=== PATIENT | female | born 1940 | race Asian ===

== ENCOUNTER 2022-04-26 21:13 | Inpatient (IN) | payer OTHER, MEDICARE, SELFPAY ==
[2022-04-26] VITALS (14 sets, daily range): BP systolic 172–204; BP diastolic 80–126; PULSE 64–84; RESP 18–20; TEMP 36.7; O2SAT 96–99; BMI 19.2
--- NOTE | 2022-04-26 21:37 | CRLHL7_ITS ---
For Patients: As a result of the Century Cures Act, medical imaging exams and procedure reports are released immediately into your electronic medical record. You may view this report before your referring provider. If you have questions, please contact your health care provider. DATE: 04/26/2022. CLINICAL HISTORY: Acute neurological deficit. TECHNIQUE: Standard helical CT image acquisition of the brain was performed. COMPARISON: None available. FINDINGS: There is no intracranial hemorrhage. No extra-axial collection, mass effect, or midline shift. There is a 9mm ovoid hypodensity within the left centrum semiovale which may reflect a lacunar infarct of indeterminate chronicity. Additional very small lacunar infarcts are seen in the bilateral basal ganglia and thalami, presumably chronic. Superimposed patchy hypoattenuation within the white matter of both hemispheres likely reflects sequela of chronic small vessel ischemia. Mild generalized parenchymal volume loss with resulting prominence of cerebral sulci and the ventricular system. The calvarium is unremarkable. Right ocular lens replacement. The paranasal sinuses are unremarkable. The mastoid air cells are unremarkable. The soft tissues are unremarkable. IMPRESSION: 1. No CT evidence of acute intracranial hemorrhage. 2. 9mm ovoid hypodensity within the left centrum semiovale. This may reflect a lacunar infarct and is of indeterminate chronicity. Further assessment with MRI of the brain is recommended if there are symptoms concerning for an acute ischemic stroke. 3. Very small lacunar infarcts in the bilateral basal ganglia and thalami, likely chronic. 4. Senescent changes including generalized parenchymal volume loss and findings likely reflecting sequela of chronic small vessel ischemia. Please note that all CT scans at this facility use dose modulation, iterative reconstruction, and/or weight-based dosing when appropriate to reduce radiation dose to as low as reasonably achievable. Dictated by Salvador Girard MD @ 04/26/2022 9:57:21 PM (Electronically Signed)
--- NOTE | 2022-04-26 22:02 | ED.NURSE ---
blood sugar 128
--- NOTE | 2022-04-26 22:18 | ED.GENADULT ---
HPI - General Adult General Chief complaint: Weakness Stated complaint: Numb in left arm, left foot Time Seen by Provider: 04/26/22 21:33 History of Present Illness HPI narrative: This 81-year-old female comes in with her son because of left-sided weakness. She is Turkmen and does not understand anguish. Her son does speak anguish but sales utility representative services were also employed. The patient fell asleep at about 8:00 p.m. yesterday and awoke at midnight, about 22 hours prior to arrival, with some left-sided weakness. These symptoms have persisted until now. She normally ambulates without assistance but was unable to do so today. Her son went to the pharmacy to get a walker but she still had difficulty with her left-sided weakness. She is not on any blood thinners. Related Data Home Medications Medication Instructions Recorded Confirmed Unobtainable 04/26/22 04/26/22 Allergies Allergy/AdvReac Type Severity Reaction Status Date / Time No Known Drug Allergies Allergy Verified 04/26/22 21:56 Review of Systems Narrative: Unable to obtain due to language barrier. [facility] Medical History (Updated 04/26/22 @ 23:52 by Conor Mercado RN) Hypertension Surgical History (Updated 04/26/22 @ 23:52 by Conor Mercado RN) No significant past surgical history Social History Smoking Status: Smoker, status unknown Do you use any of these nicotine containing products: None How often do you have a drink containing alcohol: never AUDIT-C Alcohol total score: 0 Non-prescribed substance use: denies use Exam Narrative: Exam Narrative: Constitutional: Well-developed, well-nourished, no acute distress. HEENT: Normocephalic, atraumatic. Neck: Normal range of motion. Nontender. Supple. Heart: Regular. No murmurs. Normal rate. Intact distal pulses. Lungs: Clear to auscultation. No chest discomfort. No wheezes, rhonchi, or rales. Abdomen: Normal bowel sounds. Nontender. No rebound tenderness. Genitalia: Deferred. Back: No midline tenderness. Normal range of motion. Extremities: Normal range of motion. No injury. Skin: Intact. No rash. Warm. No erythema or pallor. Neurologic: Generalized left-sided weakness. She has some left facial droop and tongue deviates to the left. 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 She has some evidence of pronator drift. [id number] is normal. She is able to raise each leg from the bed to touch my hand. Psychiatric: No suicidality. No anxiety or depression. No insomnia. Nursing notes and vitals signs are reviewed. Const: Vital Signs, click to edit/add: Vital Signs - 24 hr 04/26/22 21:52 04/26/22 21:53 04/26/22 22:02 Temperature 98.0 F Pulse Rate 66 Pulse Rate [Right Pulse Oximeter] 84 Respiratory Rate 20 Blood Pressure 201/88 H 191/83 H Blood Pressure [Le ft Upper Arm] 184/126 H Pulse Oximetry 99 96 Oxygen Delivery Me thod Room Air 04/26/22 22:03 04/26/22 22:15 04/26/22 22:17 Temperature Pulse Rate 66 64 64 Pulse Rate [Right Pulse Oximeter] Respiratory Rate Blood Pressure 182/86 H Blood Pressure [Le ft Upper Arm] Pulse Oximetry 97 98 98 Oxygen Delivery Me thod 04/26/22 22:30 04/26/22 22:32 Temperature Pulse Rate 70 71 Pulse Rate [Right Pulse Oximeter] Respiratory Rate Blood Pressure 172/91 H Blood Pressure [Le ft Upper Arm] Pulse Oximetry 97 98 Oxygen Delivery Me thod Course Vital Signs Vital signs: Initial Vital Signs Temperature 98.0 F 04/26/22 21:52 Temperature Source Temporal Artery Scan 04/26/22 21:52 Pulse Rate 84 04/26/22 21:52 Respiratory Rate 20 04/26/22 21:52 Blood Pressure 184/126 H 04/26/22 21:52 Blood Pressure Mean 145 04/26/22 21:52 Blood Pressure Position Supine 04/26/22 21:52 Pulse Oximetry 99 04/26/22 21:52 Oxygen Delivery Method 04/26/22 21:52 Vital Signs Temperature 98.0 F 04/26/22 21:52 Pulse Rate 84 04/26/22 21:52 Respiratory Rate 20 04/26/22 21:52 Blood Pressure 184/126 H 04/26/22 21:52 Pulse Oximetry 99 04/26/22 21:52 Oxygen Delivery Method 04/26/22 21:52 Temperature 98.0 F 04/26/22 21:52 Pulse Rate 71 04/26/22 22:32 Respiratory Rate 20 04/26/22 21:52 Blood Pressure 172/91 H 04/26/22 22:32 Pulse Oximetry 98 04/26/22 22:32 Oxygen Delivery Method 04/26/22 21:52 Medical Decision Making MDM Narrative Medical decision making narrative: This patient comes in with mild but certainly notable left-sided weakness that began about 22 hours prior to arrival here. She is obviously outside of the window where thrombolytics can be considered. She does have some findings on CT scan that are suspicious for an embolic stroke. An MRI is recommended which can not be completed at this time. The patient is maintaining normal vital signs and has rather good function. She has difficulty with ambulating but was able to get up and ambulate to the bathroom with assistance of a walker and a person holding onto her. This is a distinct change from her previous function where she was ambulating without any assistance. Attempts were made to transfer this patient to a facility that has more resources for stroke evaluation treatment but there were no such beds available. There is a bed available here. I spoke with the hospitalist correctional therapy director for [facility] who will arrange for her admission into the hospital here for further evaluation and treatment. Lab Data Labs: Lab Results 04/26/22 04/26/22 04/26/22 Range/Units 22:10 22:10 22:10 WBC 6.12 (4.50-11.00) K/uL RBC 4.39 (4.00-5.20) m/uL Hgb 12.2 (12.0-16.0) gm/dL Hct 38.2 (33.0-51.0) % MCV 87 (80-100) fL MCH 28 (26-34) pg MCHC 32 (32-36) gm/dL RDW Coeff of Cristofer 12.5 (11.5-15.5) % Plt Count 325 (140-440) K/uL Neut % (Auto) 57.1 (42.0-72.0) % Lymph % (Auto) 27.0 (20-44) % [place] % (Auto) 11.3 H (0.0-11.0) % Eos % (Auto) 3.1 (0.0-7.0) % Baso % (Auto) 0.8 (0.0-3.0) % Neut # (Auto) 3.50 (1.7-7.0) K/uL Lymph # (Auto) 1.65 (0.90-2.90) K/uL [place] # (Auto) 0.70 (0.00-0.90) K/UL Eos # (Auto) 0.19 (0.00-0.50) K/uL Baso # (Auto) 0.05 (0.00-0.30) K/uL Abs Immat Gran (auto) 0.04 (0.00-0.30) K/uL Imm/Tot Granulo (auto) 0.7 % Sodium 140 (135-149) mmol/L Potassium 4.4 (3.6-5.1) mmol/L Chloride 105 (96-114) mmol/L Carbon Dioxide 27 (20-32) mmol/L BUN 21 (7-30) mg/dL Creatinine 0.8 (0.5-1.5) mg/dL Estimated Creat Clear 29.51 Estimated GFR 74 ml/min Glucose 123 H (60-115) mg/dL Calcium 9.8 (8.4-10.6) mg/dL SARS-CoV-2 (PCR) Negative SARS-CoV-2 (Negative) Influenza Type A (PCR) Negative PCR FLU A (Negative) Influenza Type B (PCR) Negative PCR FLU B (Negative) Imaging Data CT scan - head: Radiologist's impression: 1. No CT evidence of acute intracranial hemorrhage. 2. 9mm ovoid hypodensity within the left centrum semiovale. This may reflect a lacunar infarct and is of indeterminate chronicity. Further assessment with MRI of the brain is recommended if there are symptoms concerning for an acute ischemic stroke. 3. Very small lacunar infarcts in the bilateral basal ganglia and thalami, likely chronic. 4. Senescent changes including generalized parenchymal volume loss and findings likely reflecting sequela of chronic small vessel ischemia. ECG Data Attestation: I personally reviewed and interpreted this ECG as follows: Interpretation: Normal sinus rhythm. Rate is 68 beats per minute. There are no ST or T-wave abnormalities. Discharge Plan Discharge Clinical Impression: Cerebrovascular accident (CVA) Patient Disposition: Admitted As Inpatient Condition: Unchanged
[2022-04-26 22:31] LABS: Chloride* 105 mmol/L (96-114); Potassium* 4.4 mmol/L (3.6-5.1); Sodium* 140 mmol/L (135-149)
[2022-04-26 22:34] LABS: Blood Urea Nitrogen* 21 mg/dL (7-30); Calcium* 9.8 mg/dL (8.4-10.6); Carbon Dioxide* 27 mmol/L (20-32); Creatinine* 0.8 mg/dL (0.5-1.5); Est. Creatinine Clearance* 29.51; Estimated Glomerular Filt Rate 74 ml/min; Glucose* 123 mg/dL (60-115)
[2022-04-26 22:42] LABS: Basophils Absolute Auto 0.05 K/uL (0.00-0.30); Basophils Percent Auto 0.8 % (0.0-3.0); Eosinophils Absolute Auto 0.19 K/uL (0.00-0.50); Eosinophils Percent Auto 3.1 % (0.0-7.0); Hematocrit 38.2 % (33.0-51.0); Hemoglobin* 12.2 gm/dL (12.0-16.0); Immature Granulocytes Abs Auto 0.04 K/uL (0.00-0.30); Immature Granulocytes Pct Auto 0.7 %; Lymphocytes Absolute Auto 1.65 K/uL (0.90-2.90); Mean Corpuscular HGB Conc 32 gm/dL (32-36); Mean Corpuscular Hemoglobin 28 pg (26-34); Mean Corpuscular Volume 87 fL (80-100); Monocytes Percent Auto 11.3 % (0.0-11.0); Neutrophils Percent Auto 57.1 % (42.0-72.0); Platelet Count* 325 K/uL (140-440); RDW Coefficient of Variation % 12.5 % (11.5-15.5); Red Blood Count 4.39 m/uL (4.00-5.20); White Blood Count* 6.12 K/uL (4.50-11.00)
[2022-04-26 22:45] LABS: Slide Review Reflex No
[2022-04-26 22:56] LABS: PCR FLU A Negative PCR FLU A (Negative); PCR FLU B Negative PCR FLU B (Negative)
[2022-04-26 23:00] LABS: SARS PCR* Negative SARS-CoV-2 (Negative)
[2022-04-27] VITALS (8 sets, daily range): BP systolic 155–206; BP diastolic 75–93; PULSE 66–89; RESP 16–18; TEMP 36.4–36.9; O2SAT 96–100; BMI 25.2
[2022-04-27] MEDS: ASPIRIN 81 MG TAB.CHEW 324 MG PO (00:40)
--- NOTE | 2022-04-27 00:54 | P.IMCN_ITS ---
Date of Consult Consult date: 04/27/22 Primary Care Provider: Not a Local Provider Consult Narrative Narrative: [facility] Hospitalist ADMISSION SUPPORT NOTE eHospitalist was contacted by with request of admission support. Chief complaint: Left sided weakness HPI: The history was obtained from the patient's son Houston who was present at bedside and acted as automotive parts interpreter given the fact that the patient speaks Maldivian only. Apparently at midnight 04/26 the patient got up to go to the restroom and had weakness on her left side making it difficult for her to walk. She therefore crawled to the restroom. She called her son Houston who does not live with her however in speaking with him she thought her symptoms were related to her legs falling asleep. She decided to go back to sleep and in the morning her weakness continued. She attempted to ambulate with the use of a walker but this was unsuccessful and she eventually came in for evaluation. She has history of elevated blood pressure although not on any medications. She is visiting her son who reports that since she came to [facility] in January she has not been seen by a physician. CT scan imaging revealed lacunar infarcts. Review of systems other than mentioned above is negative Home Medications/Pertinent Medical History/Pertinent Social History: Reviewed see EMR for details [facility] Medical History (Updated 04/26/22 @ 23:52 by Conor Mercado RN) Hypertension Surgical History (Updated 04/26/22 @ 23:52 by Conor Mercado RN) No significant past surgical history Social History Smoking Status: Smoker, status unknown Do you use any of these nicotine containing products: None How often do you have a drink containing alcohol: never AUDIT-C Alcohol total score: 0 Non-prescribed substance use: denies use Caffeine: No (coffee rarely) service: No Meds Home Medications and Allergies Home Medications Medication Instructions Recorded Confirmed Type Unobtainable 04/26/22 04/26/22 History Allergies Allergy/AdvReac Type Severity Reaction Status Date / Time No Known Drug Allergies Allergy Verified 04/26/22 21:56 Exam Narrative: Exam Narrative: Exam (performed via interactive video with assistance of bedside nurse): General: Alert, cooperative, no acute distress HEENT: Oral mucosa pink and moist without erythema Lungs: Clear to auscultation bilaterally without crackle or wheeze CV: Regular rate and rhythm without loud murmur rub or gallop Ext: No pitting edema noted Skin: No rashes, bruises or lesions appreciated on gross visualization of exposed skin Neuro: Alert, oriented x 3. CN III -VII, XI, XII grossly intact except left facial troop, left sided weakness appreciated by nurse Const: Vital Signs, click to edit/add: Vital Signs - 24 hr 04/26/22 21:52 04/26/22 21:53 04/26/22 22:02 Temperature 98.0 F Pulse Rate 66 Pulse Rate [Right Pulse Oximeter] 84 Respiratory Rate 20 Blood Pressure 201/88 H 191/83 H Blood Pressure [Le ft Upper Arm] 184/126 H Pulse Oximetry 99 96 Oxygen Delivery Me thod Room Air 04/26/22 22:03 04/26/22 22:15 04/26/22 22:17 Temperature Pulse Rate 66 64 64 Pulse Rate [Right Pulse Oximeter] Respiratory Rate Blood Pressure 182/86 H Blood Pressure [Le ft Upper Arm] Pulse Oximetry 97 98 98 Oxygen Delivery Me thod 04/26/22 22:30 04/26/22 22:32 04/26/22 22:47 Temperature Pulse Rate 70 71 64 Pulse Rate [Right Pulse Oximeter] Respiratory Rate 18 Blood Pressure 172/91 H 199/109 H Blood Pressure [Le ft Upper Arm] Pulse Oximetry 97 98 99 Oxygen Delivery Me thod 04/26/22 23:05 04/26/22 23:17 04/26/22 23:32 Temperature Pulse Rate 73 67 70 Pulse Rate [Right Pulse Oximeter] Respiratory Rate 18 18 18 Blood Pressure 199/80 H 204/94 H 199/95 H Blood Pressure [Le ft Upper Arm] Pulse Oximetry 97 97 98 Oxygen Delivery Me thod 04/26/22 23:47 04/27/22 00:02 04/27/22 00:17 Temperature Pulse Rate 67 69 68 Pulse Rate [Right Pulse Oximeter] Respiratory Rate 18 18 18 Blood Pressure 197/89 H 206/89 H 186/93 H Blood Pressure [Le ft Upper Arm] Pulse Oximetry 98 100 100 Oxygen Delivery Me thod 04/26/22 22:00 Temperature Pulse Rate Pulse Rate [Right Pulse Oximeter] Respiratory Rate Blood Pressure Blood Pressure [Le ft Upper Arm] Pulse Oximetry 98 Oxygen Delivery Me thod Labs Labs: Short CBC 04/26/22 Range/Units 22:10 WBC 6.12 (4.50-11.00) K/uL Hgb 12.2 (12.0-16.0) gm/dL Hct 38.2 (33.0-51.0) % Plt Count 325 (140-440) K/uL [facility] 04/26/22 22:10 Sodium 140 Potassium 4.4 Chloride 105 Carbon Dioxide 27 BUN 21 Creatinine 0.8 Glucose 123 H Calcium 9.8 Assessment and Plan Assessment and plan (1) Cerebrovascular accident (CVA): Status: Acute Plan Recent lab: Reviewed see EMR for details EKG: Per my interpretation showed NSR Assessment and Plan: 1. Stroke-MRI and MRA of brain and neck ordered, patient needs 2D echo with bubble. Continue telemetry. Continue aspirin. Check hemoglobin A1c, TSH, lipid panel 2. Hypertension-begin low-dose amlodipine in the morning. 3. DVT prophylaxis-SCDs 4. CODE STATUS okay for cardiac resuscitation DO NOT INTUBATE discussed with patient Chart review was performed as well as evaluation of the patient via video. Thank you for involving ehospitalist. Please contact [phone] if further assistance is needed.
--- NOTE | 2022-04-27 06:00 | CRLHL7_ITS ---
For Patients: As a result of the Century Cures Act, medical imaging exams and procedure reports are released immediately into your electronic medical record. You may view this report before your referring provider. If you have questions, please contact your health care provider. Indication: Neuro deficit. Stroke Technique: MRI Head: Performed without IV contrast. MRA Head: Performed without IV contrast. Comparison: None relevant available at the time of interpretation. Findings: MRI Head: Mild thinning of the corpus callosum. Partially empty sella turcica. The clivus is intact. Mild degenerative change visualized upper cervical spine. There is a moderate-sized zone of restricted diffusion measuring up to 1.8 cm in AP diameter located within the right sammy sonali. There is associated T2 FLAIR hyperintensity. The ventricles are proportionate to the cerebral sulci. The 4th ventricle appears midline. The basal cisterns appear patent. No abnormal extra-axial fluid collection identified. Mild parenchymal volume loss. Moderate T2 FLAIR hyperintense foci within the subcortical and periventricular white matter, favored to represent chronic ischemic microvascular disease. Small chronic cerebellar lacunar infarcts. Left greater than right thalamic chronic lacunar infarcts. Small foci of chronic hemosiderin along the right cerebellar hemisphere and sonali. There is no intracranial mass, abnormal mass-effect or midline shift identified. Bilateral pseudophakia. Mild paranasal sinus mucosal disease. MRA Head: [id number] scattered intracranial atherosclerotic disease. There is no proximal arterial occlusion. No aneurysm identified. Impression: MRI Head: 1. Moderate-sized acute/subacute right pontine infarct 2. Moderate chronic ischemic microvascular disease. Scattered chronic lacunar infarcts of the thalami and cerebellum. MRA Head: 1. Mild to moderate scattered intracranial atherosclerotic disease. No proximal anterior occlusion. 2. No aneurysm. Dictated by William De Jesus MD @ 04/27/2022 1:08:34 PM (Electronically Signed)
[2022-04-27 07:20] LABS: Hemoglobin A1C* 6.63 % (0-5.6)
[2022-04-27 07:37] LABS: Cholesterol* 334 mg/dL (90-199)
[2022-04-27 07:38] LABS: HDL Cholesterol* 51 mg/dL (>=50); LDL Cholesterol Calculated 225 mg/dL (<100); Triglycerides* 288 mg/dL (40-149)
[2022-04-27] MEDS: CLOPIDOGREL 75 MG TABLET PO (09:43)
[2022-04-27] MEDS: ROSUVASTATIN CALCIUM 10 MG TABLET PO (09:44)
[2022-04-27] MEDS: ACETAMINOPHEN 325 MG TABLET 650 MG PO (14:27)
--- NOTE | 2022-04-27 15:17 | PC.SOCIAL ---
Per therapies pt. may benefit from an acute rehab stay. Updated pt.'s son and he was in agreement to try an acute rehab stay otherwise he wants to take pt. home. A referral was sent to [facility]. Spoke with Gardenia at [facility] at [phone]. They are not sure if they will have and opening and if they do it will not be until Monday. Also pt. has [employer] which is a [facility] plan. Typically they do not cover out of state rehab unless they make an out of network exception and it is a process. 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 [facility] will give an update tomorrow.
--- NOTE | 2022-04-27 15:29 | P.IMHP_ITS ---
Hospitalist- H&P: HPI History of Present Illness Date Seen: 04/28/22 Chief complaint: Numb in left arm, left foot Narrative: Jw Gama is a 81 year old female admitted to the hospital with a 1 day history of left arm and leg weakness, difficulty speaking, left-sided numbness and some right-sided pain. 04/25/2022 late in the evening near midnight the patient had left-sided weakness. This was of new onset. She was unable to walk because her left leg was not working properly. She apparently had to crawl to the bathroom. Symptoms persisted the next day so she came to the emergency room. She arrived in the emergency room almost 22 hours after the onset of symptoms. That time she was clinically diagnosed with a stroke causing her left-sided symptoms. She was felt to not be a candidate for thrombolysis or catheter directed therapies. This morning she was admitted for management of stroke and rehabilitation. She had an MRI this morning that showed moderate sized acute to subacute right pontine infarct. Also noted were moderate chronic ischemic microvascular disease with scattered chronic lacunar infarcts in the thalami and cerebellum. The MRA showed [id number] scattered intracranial atherosclerotic disease. Overnight she notes no marked change in her symptoms. She is most bothered by her leg weakness with which she can not walk and her left arm which she feels is currently useless to her. She also is telling me that her tongue does not work well when she tries to speak. She sounds fairly fluent however when she speaks to the Frisian window glass installer. She is also saying that she is having pain involving the right side of her body and numbness involving the left side of her body. She reports that she is entirely healthy in the past but when pressed she indicates in the past he has been diagnosed with high cholesterol and high blood pressure. She has apparently been prescribed medicine for this which she is not taking. She takes no regular medicines except for an occasional Advil which she did have recently. Review of Systems Narrative: Prior to the last 2 days she reports she has been generally well except for mild cold symptoms recently. Some congestion and sore throat. Some cough. No shortness of breath or fever. She denies headache. She reports no visual disturbance. No previous neurologic symptoms or previous stroke. No chest pain or abdominal pain. She has been eating normally. No bowel or bladder problems. She has no previous surgery. No apparent previous hospitalization. [facility] Medical History (Updated 04/27/22 @ 15:43 by Narciso Pabon MD) Hyperlipidemia Hypertension Surgical History No significant past surgical history Social History (Updated 04/27/22 @ 15:36 by Narciso Pabon MD) Narrative: She lives with her son in [place] most the time but is here visiting her son in [place]. Code status is DNI. She does not smoke. She does not drink alcohol. Smoking Status: Smoker, status unknown Do you use any of these nicotine containing products: None How often do you have a drink containing alcohol: never AUDIT-C Alcohol total score: 0 Non-prescribed substance use: denies use Caffeine: No (coffee rarely) service: No Meds Home Medications and Allergies Home Medications Medication Instructions Recorded Confirmed Type Unobtainable 04/26/22 04/26/22 History Allergies Allergy/AdvReac Type Severity Reaction Status Date / Time No Known Drug Allergies Allergy Verified 04/26/22 21:56 Exam Narrative: Exam Narrative: She is alert and appears in no distress. Head is without trauma. There is no obvious facial asymmetry. Eyes are normal. Pupils are equal round reactive light. Extraocular movements are full. Visual rajan appear intact. She does not appear to have a sensory neglect in her face. Oropharynx is normal. Neck is supple without mass or adenopathy. Respirations are clear to auscultation. Cardiovascular: S1, S2, regular rate and rhythm. No murmur gallop or rub. Abdomen: Bowel sounds active. Abdomen is soft without tenderness or mass. Right upper extremity has normal motion and strength. Hjwofe-sihy-zgrnrp is accurate and efficient. Left upper extremity. When I ask her to move voluntarily she initially cannot lift it off the bed but then when instructed again she has 4- over 4 strength in shoulder flexion extension, elbow flexion extension, wrist flexion extension, fire prevention chief strength and finger extension. F sdfne-aiki-jmopua is slow and inaccurate on the left. She appears to have some apraxia with her left as well. She tells me that her arm is numb but does feel the skin when I pinch it but says it does not feel normal Right lower extremity has normal strength, tone, sensation, pulses. She reports intact sensation to soft touch. She does tell me that there is a discomfort in that leg but no obvious signs of trauma or previous injury or inflammation. When examining her left lower extremity in asking her to lift it off the bed she initially indicates that she can not and uses her hands to lift it up. After further instruction however she is able to lift it and move it with fair strength. She does not cooperate well with strength testing but it appears again to be 4- over 5 strength in her left lower extremity. Is intact pulses. She tells me it is numb but then when I pinch her skin she tells me she can feel it but it does not feel normal. Const: Vital Signs, click to edit/add: Vital Signs - 24 hr 04/26/22 21:52 04/26/22 21:53 04/26/22 22:02 Temperature 98.0 F Pulse Rate 66 Pulse Rate [Pulse Oximeter] Pulse Rate [Right Pulse Oximeter] 84 Respiratory Rate 20 Blood Pressure 201/88 H 191/83 H Blood Pressure [Le ft Upper Arm] 184/126 H Blood Pressure [Ri ght Arm] Pulse Oximetry 99 96 Oxygen Delivery Me thod Room Air 04/26/22 22:03 04/26/22 22:15 04/26/22 22:17 Temperature Pulse Rate 66 64 64 Pulse Rate [Pulse Oximeter] Pulse Rate [Right Pulse Oximeter] Respiratory Rate Blood Pressure 182/86 H Blood Pressure [Le ft Upper Arm] Blood Pressure [Ri ght Arm] Pulse Oximetry 97 98 98 Oxygen Delivery Me thod 04/26/22 22:30 04/26/22 22:32 04/26/22 22:47 Temperature Pulse Rate 70 71 64 Pulse Rate [Pulse Oximeter] Pulse Rate [Right Pulse Oximeter] Respiratory Rate 18 Blood Pressure 172/91 H 199/109 H Blood Pressure [Le ft Upper Arm] Blood Pressure [Ri ght Arm] Pulse Oximetry 97 98 99 Oxygen Delivery Me thod 04/26/22 23:05 04/26/22 23:17 04/26/22 23:32 Temperature Pulse Rate 73 67 70 Pulse Rate [Pulse Oximeter] Pulse Rate [Right Pulse Oximeter] Respiratory Rate 18 18 18 Blood Pressure 199/80 H 204/94 H 199/95 H Blood Pressure [Le ft Upper Arm] Blood Pressure [Ri ght Arm] Pulse Oximetry 97 97 98 Oxygen Delivery Me thod 04/26/22 23:47 04/27/22 00:02 04/27/22 00:17 Temperature Pulse Rate 67 69 68 Pulse Rate [Pulse Oximeter] Pulse Rate [Right Pulse Oximeter] Respiratory Rate 18 18 18 Blood Pressure 197/89 H 206/89 H 186/93 H Blood Pressure [Le ft Upper Arm] Blood Pressure [Ri ght Arm] Pulse Oximetry 98 100 100 Oxygen Delivery Me thod 04/26/22 22:00 04/27/22 00:43 04/27/22 00:43 Temperature 98.4 F Pulse Rate Pulse Rate [Pulse Oximeter] 70 Pulse Rate [Right Pulse Oximeter] Respiratory Rate 16 Blood Pressure Blood Pressure [Le ft Upper Arm] Blood Pressure [Ri ght Arm] 194/80 H Pulse Oximetry 98 98 98 [facility] Room Air 04/27/22 03:00 04/27/22 07:00 04/27/22 07:00 Temperature 98.3 F 98.2 F Pulse Rate Pulse Rate [Pulse Oximeter] 66 68 68 Pulse Rate [Right Pulse Oximeter] Respiratory Rate 16 16 16 Blood Pressure Blood Pressure [Le ft Upper Arm] Blood Pressure [Ri ght Arm] 186/82 H 181/85 H Pulse Oximetry 98 98 [facility] Room Air 04/27/22 11:25 Temperature 97.6 F Pulse Rate Pulse Rate [Pulse Oximeter] 73 Pulse Rate [Right Pulse Oximeter] Respiratory Rate 16 Blood Pressure Blood Pressure [Le ft Upper Arm] Blood Pressure [Ri ght Arm] 165/90 H Pulse Oximetry 96 [facility]xygen [facility] Hospitalist - H&P: Result Labs Labs: Short CBC 04/26/22 Range/Units 22:10 WBC 6.12 (4.50-11.00) K/uL Hgb 12.2 (12.0-16.0) gm/dL Hct 38.2 (33.0-51.0) % Plt Count 325 (140-440) K/uL BMP 04/26/22 22:10 Sodium 140 Potassium 4.4 Chloride 105 Carbon Dioxide 27 BUN 21 Creatinine 0.8 Glucose 123 H Calcium 9.8 Assessment and Plan Assessment and plan (1) Cerebrovascular accident (CVA): Problem comment: Acute right pontine infarct causing left-sided weakness, apraxia, subjective dysarthria and diminished sensation Status: Acute (2) Hypertension: Problem comment: Permissive hypertension for now Status: Acute (3) Hyperlipidemia: Problem comment: Initiate statin Status: Acute Plan Hospitalized for management of acute stroke. Dual antiplatelet therapy for 21 days followed by aspirin alone. Statin. Gradual introduction of blood pressure management. Acute rehab. Total time spent today is 80 minutes, 50 minutes in coordination of care and discussing with patient and other providers ongoing evaluation management of stroke
[2022-04-27] MEDS: ASPIRIN 81 MG TAB.CHEW PO (15:37)
--- NOTE | 2022-04-27 19:37 | PC.NURSE ---
Pt. alert and oriented, pleasant and cooperative using Ipad plant health care technician. Pt. uses call light appropriately, up Assist of 1 w/walker and GB. Cont. of bowels. Pt. is vegetarian and eats eggs but no other meat. Pt. is Reg diet. Pt. has significant left side weakness and facial drooping. IV in right arm SL. Plan for patient is to go to possible rehab facility. Dhiraj Houston visits before work in mornings and after work in evenings and will translate for pt.
[2022-04-27] MEDS: ENOXAPARIN 30 MG/0.3ML INJ SUBCUT (20:33)
[2022-04-28] VITALS (7 sets, daily range): BP systolic 157–184; BP diastolic 76–84; PULSE 66–82; RESP 16–20; TEMP 36.4–36.8; O2SAT 96–98
--- NOTE | 2022-04-28 07:29 | PC.NURSE ---
End of shift status [id number] Pt alert and oriented. South African speaking. Son present in room until around 2300. Denies pain. BP elevated, remains on room air. Telemetry monitoring, normal sinus rhythm. Up with assist of 1 and walker, needs reminders to use walker properly. Voiding without difficulty. Intermittent resting.
[2022-04-28] MEDS: ASPIRIN 81 MG TAB.CHEW PO (08:55)
[2022-04-28] MEDS: CLOPIDOGREL 75 MG TABLET PO (08:55)
[2022-04-28] MEDS: ROSUVASTATIN CALCIUM 10 MG TABLET 20 MG PO (08:56)
--- NOTE | 2022-04-28 11:19 | PC.SOCIAL ---
Met with pt. and son to discuss discharge plans and go over insurance and what Kim Glass said about coverage. Pt. wants to go home and son Houston is in support of this. Pt. lives in [place] and [place] said one family member will be with pt. at all times. They would like to pursue home care for PT and OT. [facility] does not accept medical assistance and [facility] is full. [facility] @ [phone], has an opening is assessing and checking staffing schedules.
--- NOTE | 2022-04-28 13:07 | PM.DS1 ---
DS: Providers Provider Date Seen: 04/28/22 Date of admission: 04/27/22 14:21 Primary care physician: Bernard Ramirez MD Admitting Clinician: Brendan Iverson MD Attending Physician on discharge: Brendan Iverson MD Date of Discharge: 04/28/22 DS: Diagnosis Discharge Diagnosis (1) Cerebrovascular accident (CVA): Status: Acute Problem details: Acute right pontine infarct causing left-sided weakness, apraxia, subjective dysarthria and diminished sensation. Aspirin 81 mg daily and definitely. Clopidogrel 75 mg daily for 21 days. Outpatient PT and OT. (2) Hyperlipidemia: Status: Acute Problem details: Initiate high-dose statin. (3) Hypertension: Status: Acute Problem details: Gradually bring blood pressures under control over the next month. DS: Summary Hospital Course Hospital Course: 81-year-old female presents to the hospital approximately 1 day after onset of left sided weakness. Evaluation showed that she had left upper and lower extremity weakness with some apraxia. MRI MRA was obtained and showed an acute pontine stroke. She was beyond the time of thrombolytics or other intravascular intervention. She was treated with aspirin and clopidogrel, statin and permissive hypertension. Patient also reported some difficulties with speaking. Speech therapy evaluation showed no difficulties with swallowing thin liquids and solid foods. Occupational therapy and physical therapy felt she would benefit from inpatient rehab but there were no available options for this. Patient was very anxious to go home in any case so arrangements were made for her to go home with her son who can provide 24 hour a day 7 day a week care and supervision with his siblings. Will make arrangements for outpatient PT and OT. Status at Discharge Cognitive/behavioral status at discharge: Left sided weakness and apraxia involving left arm and leg. Clumsy with [id number] on the left. Speech seems relatively fluent. Functional status at discharge: uses cane/walker Overall status at discharge: patient is progressing back to baseline Time Spent with Patient Time attestation: Total time spent providing and/or coordinating discharge services: Time spent: Greater than 30 minutes Exam Narrative: Exam Narrative: She is alert and appears in no distress. Speech seems relatively fluent without obvious dysarthria. No facial asymmetry. Extraocular movements are full. She has 4/5 strength in her left upper extremity compared to 5/5 in the right. Similarly 4/5 strength in the left lower extremity compared to the right lower extremity. She is clumsy and somewhat apraxic with the left upper extremity compared to the right. Const: Vital Signs, click to edit/add: Vital Signs - 24 hr 04/27/22 15:00 04/27/22 15:00 04/27/22 20:32 Temperature 98.0 F 97.9 F Pulse Rate Pulse Rate [Pulse Oximeter] 73 89 71 Respiratory Rate 16 16 16 Blood Pressure [Le ft Arm] Blood Pressure [Ri ght Arm] 162/79 H 155/75 H Pulse Oximetry 98 98 Oxygen Delivery Me thod Room Air Room Air 04/28/22 00:19 04/28/22 01:26 04/28/22 04:35 Temperature 97.6 F 98.1 F Pulse Rate Pulse Rate [Pulse Oximeter] 71 78 73 Respiratory Rate 16 20 20 Blood Pressure [Le ft Arm] Blood Pressure [Ri ght Arm] 157/80 H 184/84 H Pulse Oximetry 98 96 Oxygen Delivery Me thod Room Air Room Air 04/28/22 05:52 04/28/22 07:00 04/28/22 11:00 Temperature 98.2 F 97.9 F Pulse Rate 82 Pulse Rate [Pulse Oximeter] 70 77 Respiratory Rate 18 18 Blood Pressure [Le ft Arm] 178/79 H 165/76 H Blood Pressure [Ri ght Arm] Pulse Oximetry 96 97 Oxygen Delivery Me thod Room Air Room Air Documenting provider has reviewed patient's vital signs: yes Discharge Plan Discharge Disposition: Home, Self-Care Date of Admission: 04/27/22 14:21 Attending Provider on Discharge: Narciso Pabon Primary Care Provider: Bernard Ramirez Condition: Unchanged Anticipated Discharge Date/Time: 04/28/22 11:22 Discharge Medications: New acetaminophen 325 mg Tablet 650 mg PO Q6H PRNQty: 100 0RF aspirin [Children's Aspirin] 81 mg Tablet,Chewable 81 mg PO DAILY Qty: 100 0RF clopidogrel 75 mg tablet 75 mg PO DAILY Qty: 21 0RF amlodipine 5 mg tablet 5 mg PO DAILY Qty: 30 3RF rosuvastatin 20 mg tablet 20 mg PO DAILY Qty: 30 3RF Discharge Orders: Discharge Order (Routine); Ordered 04/28/22 Ordered By: Narciso Pabon Patient Education: Acetaminophen (By mouth), Aspirin (By mouth), Amlodipine (By mouth), Clopidogrel (By mouth), Rosuvastatin (By mouth), Stroke (DC) Additional Instructions: Physical therapy and occupational therapy to evaluate and treat for stroke. Activity Level: Up with assist and Use Walker Discharge Diet: Regular Follow Up Appointments: Bernard Ramirez MD [Primary Care Provider] - 05/05/22 1:30 pm Forms: [employer] Info Instructions
--- NOTE | 2022-04-28 13:55 | PC.SOCIAL ---
[facility] has availability but cannot accept pt.'s [place] assistance, no home care agencies can accept an out of state [place]. Updated pt.'s son Houston who switched over pt.'s medical assistance today and said it should go through by next week. Pt. still really wants to go home. Houston will take pt. home to her house in [place] and a family member will be with pt. 12/12. Pt. has outpatient PT and OT in [place] set up but it is 3 weeks out. Emailed Houston a list of area home health agencies that Houston can call once pt. has [place] medical assistance. Pt. will need to get new home care orders through her primary and Houston is aware of this. Pt. will also discharge home with home exercises from OT and PT.
--- NOTE | 2022-04-28 15:42 | PC.NURSE ---
Discharge-- Very pleasant and cooperative, alert and oriented patient discharged to home via wheelchair with son and daughter in law. Pt speaks primarily Indonesian but declined to use ipad tow truck dispatcher and instead asked for her son to interpret. VSS, though hypertensive as per MD recommendation at this time, and pt is afebrile. SPO2 maintained >90% on RA. She denied any pain. Pt continues to have residual weakness on left side and slight left sided facial droop. Telemetry showed NSR. LS CTA. BS+ x4, pt denied nausea and tolerated a regular diet without difficulty. She ambulated in hallway and in room with SBA and walker and tolerated it very well. Discharge education was provided including diagnosis info, symptoms to report, medications and follow up plan. All questions answered. SL was removed with tip intact.
== END 2022-04-28 15:30 | disposition home or self-care (01) | DRG 65 ==
LOC: ED 23:48 → MEDSURG 04-27 00:20
PROVIDERS: Internal Medicine; Admitting Provider Internal Medicine; Emergency Provider Emergency Medicine Emergency Medical Services; PCP Family Medicine; Visit Provider Internal Medicine
DX: I63.9 Cerebral infarction, unspecified (principal); G81.94 Hemiplegia, unspecified affecting left nondominant side; R48.2 Apraxia; R47.1 Dysarthria and anarthria; R20.0 Anesthesia of skin; R29.810 Facial weakness; I67.2 Cerebral atherosclerosis; I10 Essential (primary) hypertension; E78.5 Hyperlipidemia, unspecified
CPT/HCPCS: 36415; 70450; 70544; 70551; 80048; 80061; 83036; 84443; 85025; 87631; 92610; 93005; 93306; 94761; 97110; 97116; 97161; 97165; 97535; 99285; A9270; G0378; J1650

== ENCOUNTER 2022-09-05 08:43 | Outpatient (CLI) | payer MEDICARE, SELFPAY | END 2022-09-05 08:44 | disposition home or self-care (01) | PROVIDERS: PCP Family Medicine; Referring Provider Family Medicine; Visit Provider Family Medicine | DX: Z00.00 Encounter for general adult medical examination without abnormal findings (principal); E11.9 Type 2 diabetes mellitus without complications; Z13.6 Encounter for screening for cardiovascular disorders | CPT/HCPCS: 80048; 80061; 82043; 82570 ==

== ENCOUNTER 2022-09-30 11:11 | Outpatient (CLI) | payer MEDICARE, SELFPAY | END 2022-09-30 11:12 | disposition home or self-care (01) | PROVIDERS: PCP Family Medicine; Visit Provider Family Medicine | DX: Z01.419 Encounter for gynecological examination (general) (routine) without abnormal findings (principal); E11.9 Type 2 diabetes mellitus without complications; E78.5 Hyperlipidemia, unspecified; D64.9 Anemia, unspecified | CPT/HCPCS: 82607; 82728; 83540 ==

== ENCOUNTER 2022-11-08 09:15 | Outpatient (RCR) | payer MEDICARE, OTHER, SELFPAY ==
--- NOTE | 2022-05-18 17:12 | OT.OPODN ---
OT Outpatient Ortho Daily Note OT Outpatient Ortho Daily Note Start: 05/18/22 15:05 Freq: Status: Active Protocol: Document 05/18/22 15:33 LCN (Rec: 05/18/22 15:35 LCN Desktop) E-signed By Shanon Stein, OTR/L, CLT Type of Note Type of Note Type of Note Daily Note Visit Number 1 Insurance Information Insurance Information Medicare B Outpatient History/Precautions Current Condition/Medical Diagnosis Referring Provider Dr. 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 on 81 mg aspirin indefinitely. 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 Found to have suffered an acute right pontine infarct causing left-sided weakness, apraxia, subjective dysarthria and diminished sensation. Was stabilized in hospital setting and had OT/PT prior to discharge. Since then, she has progressed to being able to dress and toilet herself from walker level with close 24 hour supervision of her family at home. She is stronger proximally at L shoulder, triceps; weaker at biceps wrist, domain architect. Pain Assessment Pain Present Pain Present No Pain Reported OT OP Daily Ortho Note/Assessment Self-Care/Home Management Self-Care/Home Management Minutes ( 5 minutes) Self-Care/Home Management Comments Discussed need for adding satefy grab bars in /outside of tub shower and how to access at Home [employer], [employer], Headroom. Son already installed ones by toilet, has space for a vertical outside of tub/shower . Advised not to rely on towel bars or shower glass frame. Therapeutic Exercise Therapeutic Exercise Minutes (minutes) 20 Therapeutic Exercise Comments OTR devises HEP for building shoulder strength using B dowel exercises in supine for chest press, SH FL short arc 90-160 degrees and H ABD to H Add. Added enlarged domain architect with therapy band. Has to regrip hand, take a break at 4-6 reps for exercise but larger domain architect is helpful. In sitting at door, doing scap row pull backs with foam handle on orange therapy band loop/door knob. Issued visual aide with long and short format, with verbal review of each exercise . Encouraged to build slowly by 5-10 reps each week and to avoid any exercises that create pain. Aching from effort is okay. Also to use L hand functionally for washing face with wash cloth and wiping table off every meal. Edema Assessment Additional Information Comments Dresses self with set up. Bathes with min A during transfer, from shower chair in tub shower with glass door, hand held shower. no grab bars outside or inside tub, by stabilizes on door frame and with hand held/family assist. Toilets-- self walking between rooms and now anticipating bowel/bladder in time ( that was hard just after d/c had been using briefs until a week ago) onto raised toilet seat with grab bars B, has bidet for leroy care/hygiene. Eats with set up of meals/max A to open food packaging. Eats on table upstairs in her master bedroom with bathroom suite. Max A of 2 to get down stairs to main level living with family/out of home for 16 steps with railings. Using Large 4 wheeled walker with hand brakes, cues needed to use brakes safely between transitions. OT Objective Data Hand Hand Dominance Right Additional Information Objective Additional Information AROM-- SH FL to 180 of 180 R and 150 on L while sitting. Full AROM of elbow, forearm. Able to L open hand to 95% arc . MMT of R SH, elbow, wrist 5/5. L SH ABD 4+/5. elbow ext 4+/ 5, 4-/5 biceps. WR EX 3+/5 Hosiery Bagger is 28# R and 2, 7 # L. Conn pinch is 9# R and 2# L. 3 pt is 8.5 # R and 1.5# L. Upper Extremity Special Tests Upper Extremity Special Tests Comments Comments HEP-- Sh dowel chest press, short arc flexion 90-160 and h ABD to Hadd, push pull on cane and orange band loop on knob/scap pull backs. OT Problems Problems Problems Decreased Strength,Decreased Range of Motion,Decreased Fine Motor,Lifting,Gripping, Pinching Problems Comments home safety, lacking home program With high level current mobility needs for managing 2 level living, pt would benefit from home health therapy for building safe return to home based mobility before returning back to OP OT setting for continued higher level therapy. Other Problems Opening Containers,Dressing, Fasteners Patient Potential Good Occupational Therapy Treatment Plan - OP Potential Rehabilitation Potential Good Goals Goals 1) Pt/family to understand needs for safety grab bars in and out side of tub shower to reduce fall risk. (GOAL MET) ? 2) to demonstrate Independent home program of 5 tasks as needed for managing tone, improving strength and AROM. Target Date 05/18/22 Progress met Treatment Plan Treatment Plan Evaluation,Therapeutic Exercise,Self-Care/Home Management,Caregiver Training Expected Duration Comments Pt seen for evaluation only today, likely to start home health based OT to master goals and self care skills safely in home setting. OT Treatment Minutes Treatment Minutes Untimed Treatment Minutes 30 Timed Treatment Minutes 25 Total Treatment Minutes 55 Occupational Therapy Billing Units Billing Units Self Care/Home Management 1 Therapeutic Exercise 1 Certification Certification I Certify That: Therapy Services Provided, Therapy Plan Established, Therapy Plan Reviewed
--- NOTE | 2022-05-18 17:15 | OT.OPOE ---
OT Outpatient Ortho Eval OT Outpatient Ortho Eval Start: 05/18/22 15:05 Freq: Status: Active Protocol: Document 05/18/22 15:05 LCN (Rec: 05/18/22 15:33 LCN Desktop) E-signed By Shanon Stein, OTR/L, CLT OT OP Ortho Eval Details Type Type Eval Complexity Low Insurance Information Insurance Information Medicare B Outpatient History/Precautions Current Condition/Medical Diagnosis Referring Provider Dr. 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 on 81 mg aspirin indefinitely. 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 Found to have suffered an acute right pontine infarct causing left-sided weakness, apraxia, subjective dysarthria and diminished sensation. Was stabilized in hospital setting and had OT/PT prior to discharge. Since then, she has progressed to being able to dress and toilet herself from walker level with close 24 hour supervision of her family at home. She is stronger proximally at L shoulder, triceps; weaker at biceps wrist, paraeducator. Pain Assessment Pain Present Pain Present No Pain Reported Edema Assessment Additional Information Comments Dresses self with set up. Bathes with min A during transfer, from shower chair in tub shower with glass door, hand held shower. no grab bars outside or inside tub, by stabilizes on door frame and with hand held/family assist. Toilets-- self walking between rooms and now anticipating bowel/bladder in time ( that was hard just after d/c had been using briefs until a week ago) onto raised toilet seat with grab bars B, has bidet for leroy care/hygiene. Eats with set up of meals/max A to open food packaging. Eats on table upstairs in her master bedroom with bathroom suite. Max A of 2 to get down stairs to main level living with family/out of home for 16 steps with railings. Using Large 4 wheeled walker with hand brakes, cues needed to use brakes safely between transitions. OT Objective Data Hand Hand Dominance Right Additional Information Objective Additional Information AROM-- SH FL to 180 of 180 R and 150 on L while sitting. Full AROM of elbow, forearm. Able to L open hand to 95% arc . MMT of R SH, elbow, wrist 5/5. L SH ABD 4+/5. elbow ext 4+/ 5, 4-/5 biceps. WR EX 3+/5 District Extension Service Agent is 28# R and 2, 7 # L. Conn pinch is 9# R and 2# L. 3 pt is 8.5 # R and 1.5# L. OT Problems Problems Problems Decreased Strength,Decreased Range of Motion,Decreased Fine Motor,Lifting,Gripping, Pinching Problems Comments home safety, lacking home program With high level current mobility needs for managing 2 level living, pt would benefit from home health therapy for building safe return to home based mobility before returning back to OP OT setting for continued higher level therapy. Other Problems Opening Containers,Dressing, Fasteners Patient Potential Excellent Occupational Therapy Treatment Plan - OP Potential Rehabilitation Potential Good Goals Goals 1) Pt/family to understand needs for safety grab bars in and out side of tub shower to reduce fall risk. (GOAL MET) ? 2) to demonstrate Independent home program of 5 tasks as needed for managing tone, improving strength and AROM. Target Date 05/18/22 Progress met Treatment Plan Treatment Plan Evaluation,Therapeutic Exercise,Self-Care/Home Management,Caregiver Training Expected Duration Comments Pt seen for evaluation only today, likely to start home health based OT to master goals and self care skills safely in home setting. Certification Certification I Certify That: Therapy Services Provided, Therapy Plan Established, Therapy Plan Reviewed
--- NOTE | 2022-05-18 21:05 | PT.OPE ---
PT [place] Outpatient Eval PT [facility] Outpatient Eval Start: 05/17/22 09:33 Freq: Status: Active Protocol: Document 05/17/22 10:46 BMS (Rec: 05/17/22 11:32 BMS [id number]) E-signed By Becky Becerril PT Physical Therapy Outpatient Evaluation Insurance Information Recert Due Date 08/13/22 Insurance Name Medicare B Provider Fax Number internal Medical Diagnosis CVA I63.9 cerebral infarct Treating Diagnosis weakness s/p cva R53.1 multifactoral gait abnormality R26.89 Referring MD Bernard Ramirez MD Subjective Subjective stroke 04/27 admit to [facility]. had therapy. is living with son in [place], [facility], bedrooms and bath upstairs (16) requires assist x 2 sons to go up/down, they just bring me meals up stairs and I stay there. Would like to do homecare but something with insurance bc I was in [place]. cant use my L arm or leg because they don't listen when I tell them to do something. Using walker now but too far in front. Get in/out of bed on my own. Able to take care of self and per son was lifting 50# bags of rice before stroke . Current Work Status Retired Preferred Name pronounced 'fee' Precautions Treatment Precautions/Contraindications CVA, speaks very limited Swedish (Canadian), L side weakness, diabetes, transportation Therapy Limitations/Systems Review Communication Ability,Language Barrier,Other Medical Problem Objective Range of Motion hip flex to 95, knee ext WNL but unable to perform LAQ due to wekaness. ankle ROM WNL passively but actively only to 5. R shoulder flex to 90 wiht trunk lean, abduct 90-120 with flexed trunk posutre adn side lean. Elbow lacks 10 degrees extension Strength hip flex 2+/5, HS 2+/5, abduct 3/5, adduct 3+5. quad 3/5. HS 3/5. UE strength not assessed due to OT eval tomorrow. Balance & Gait 4WW with L LE drag, lack of foot clearance at times, quickly fatigues and balance big issue. Lack of L hip flex and ext, lack of pushoff. will need gait training to properly use 4WW. stairs not assessed but will need intervention due to strength and impaired ability to activate LE on command. Posture head forward, slouched into sacral sit, does lean to L Other/Pertinent Objective patient 15 min late, short session, plating tank operator Alo and son Houston present through session. Assessment Assessment/Impression Patient is very pleasant 81 y. o. female referred to outpatient rehab services in [place] s/p CVA on 04/27/22. She has been staying with son in [place], now is staying with son in [facility]. She was noted to have deficits in strength and movement, was brought to ED at [facility] but was determined was out of ideal time frame for treatment of thromboembolism at that time. She was seen by our colleague in inpatient acute care. Recommendation per inpatient PT note was for short term acute rehab stay but instead DC to home with son, possibly due to insurance coverage. She is currently staying with son Houston who accompanies today in [facility] with 16 steps to reach bedroom and bathroom. Currently navigating this with 2 sons assist and then stays on that floor, meals are brought up to her so only leaving home at this time for medical appointments. Did ask son via interpretor (Alo) if home care was considered. He indicated some vague insurance limitations but is very open to in-home PT and OT. Therapist did contact primary provider requesting home therapy services order be faxed to our home care team and followed up via email with that team. Through that communication it seems patient 's medicare card/ information may not have been available and insurance on file at that time was from [place] with limited coverage. Request for in home therapy order submitted to primary provider to be sent to a home health organization that serves [facility] for their assessment as patient is at high fall risk on stairs. She presents today with significant L side weakness, impaired gait and mobility, balance impairments mirta without gait aid, impulsiveness, and amb using 4WW. Prior to this hospitalization was by all reports strong and independent , able to lift 50# bag of rice per son. Will hold chart as we investigate options of in home therapy vs outpatient rehab. OT is scheduled with paints and plating tank operator. Patient is appropriate for both OT and PT. If denied for home health rehab then will plan to see 1-2x/ week for up to 12 weeks pending progress. Primary Functional Limitations any use of L UE and LE. gait and balance impaired, weakness , postural stability impaired. Plan of Care Rehabilitation Potential Good Rehabilitation Potential Comments limited by transportation, language barrier (plating tank operator) , post-CVA effects and fatigue . Family (son) present and assistive. Physical Therapy Goals 1) Pt demo I HEP and self care/home mgmt techniques for improved pain management and performance of independent ADLs including transfers and grooming. 2) Pt instructed in home safety techniques including removal of scatter rugs, use of night light and poss commode, and adaptive equip as appropriate. LTG meet 6-12 weeks 1) Pt demo ability to lift LE independently without hand assist when fatigued for entrance to vehicle, entrance/ exit from tub for grooming without substitution or fear of falling. 2) Pt demo gait pattern without antalgia, with equal stride lengths and demo appropriate hip, knee, and ankle motions. 3) Pt demo appropriate balance responses to decrease risk of falls with internal and external perturbations. 4) Pt demo ability to ascend/ descend steps without pain or failure to control eccentric motion for access to home laundry and shower using most appropraite or no gait aid and appropriate pattern for phase of healing. 5) Pt will demo 500' ambulation without limp and with least restrictive (or no) gait aid, best mechanics and balance to decrease risk of fall with community ambulation for things such as grocery shopping, participation in fitness activities. Coordination/Communication With Referral Source Treatment Plan/Direct Interventions Gait Training,Manual Therapy, Neuromuscular Re-ed,Self-Care/ Home Management,Therapeutic Activities,Therapeutic Exercises Frequency/Duration 1-2x/ week x 12 visits Patient Will Be Discharged From Therapy Completion of LTG(s),Skills Plateau,Independent w/HEP, Independently Progressing Evaluation Billing Untimed Code Treatment Minutes 35 Complexity Low Certification Information Initial Certification Date 05/17/22 Ending Certification Date 08/14/22 Provider Signature Shows Agreement With POC & Medical Necessity Physician Signature & Date Requested Please Sign/Date Here Physician Comment/Change : Physician NPI Number #
--- NOTE | 2022-09-06 18:34 | PT.OPE ---
PT [place] Outpatient Eval PT [facility] Outpatient Eval Start: 05/17/22 09:33 Freq: Status: Active Protocol: Document 09/01/22 17:36 BMS (Rec: 09/01/22 17:49 BMS [id number]) E-signed By Becky Becerril PT Physical Therapy Outpatient Evaluation Insurance Information Recert Due Date 10/01/22 Insurance Name [employer] Medical Diagnosis CVA I63.9 cerebral infarct Treating Diagnosis weakness s/p cva R53.1 multifactoral gait abnormality R26.89 L shoulder pain s/p cva and falls Referring MD Bernard Ramirez MD Subjective Current Work Status Retired Preferred Name pronounced 'fee' Precautions Treatment Precautions/Contraindications CVA, speaks very limited Faroese (Ivorian), L side weakness, diabetes, HTN, transportation. lives with family who are her caretakers. Therapy Limitations/Systems Review Communication Ability,Affect, Cognition,Vision,Language Barrier,Other Medical Problem Objective Range of Motion cervical WNL but does cause dizziness that may be vertigo mirta with forward flex and rapid head turns L shoulder all ROM very painful flex to 60 with IR and adduct. abduct 30, ER 10, IR to hip Strength MMT seated hip flex 4-/5, quad 3+/5, HS, PF, DF, eversion 3-/5. L shoulder give way due to pain with all testing. Balance & Gait amb w taller red walker considering she is vertically challenged, decreased L foot clearance intermittent in amount of shuffle displayed, does fatigue significantly in tolerance and pain . unable to balance without therapist assist and heavy use of UE. ataxia of L LE with decreased tone and dysmetria noted. L UE weakness vs dysmetria for placement on walker handle in seated. trendelenberg with stance LE hip drop on L wbt. Posture L UE held close to body with hand in lap in sitting. does not use L UE unless cued to do so then reports pain with all but most minor adjustments. head forward, slumped with increased thoracic kyphosis. loss of knee extension, standing anterior pelvic tilt with WB more on R. Functional Test Performed & Score tinetti Plan of Care Rehabilitation Potential Fair Rehabilitation Potential Comments multiple barriers including language, affect, concurrent UE and LE signs and symptoms. loss of function and lack of insight to deficits. patient states she feels she is quite active throughout the day, per family )granddaughter stated she spends much time in bed or sitting, sparse time standing or walking though this does depend on the day. Coordination/Communication With Referral Source Treatment Plan/Direct Interventions Electrical Stimulation,Gait Training,Ice/Cold/ Vasopneumatic,Joint Mobilization,Manual Therapy, Neuromuscular Re-ed,Self-Care/ Home Management,Therapeutic Activities,Therapeutic Exercises,Ultrasound Frequency/Duration 1-2x/ week x 8-12 weeks Patient Will Be Discharged From Therapy Evaluation Billing Complexity Moderate Certification Information Initial Certification Date 09/01/22 Ending Certification Date 11/29/22 Provider Signature Shows Agreement With POC & Medical Necessity Physician Signature & Date Requested Please Sign/Date Here Physician Comment/Change : Physician NPI Number #
--- NOTE | 2022-10-10 10:52 | PT.OPDN ---
PT [place] Outpatient Daily Note PT [facility] Outpatient Daily Note Start: 05/17/22 09:33 Freq: Status: Active Protocol: Document 10/07/22 09:55 BMS (Rec: 10/07/22 10:55 BMS [id number]) E-signed By Becky Becerril, PT PT OP Daily Progress Note Visit Information Note Type Daily Note Visit Number 5 Insurance Authorized Visits no auth required Insurance Information Recert Due Date 11/01/22 Insurance Name [employer] Medical Diagnosis CVA I63.9 cerebral infarct Treating Diagnosis weakness s/p cva R53.1 multifactoral gait abnormality R26.89 L shoulder pain s/p cva and falls Referring MD Bernard Ramirez MD Subjective Subjective could not sleep well bc shoulder .better than was. doing ex and able to get down on floor but unable to get back up. unable to get on floor for mediatations (Anab[employer]ist). doing the ex I can in bed or sitting when I cant sleep. ( Via Samy interpreter translator and granddaughter Kiki) Preferred Name pronounced 'fee' Precautions Treatment Precautions/Contraindications CVA, speaks very limited South Korean (Polish), L side weakness, diabetes, HTN, transportation. lives with family who are her caretakers. Home Exercise Home Exercise Comments Access Code: [email or web address] URL: [email or web address] Date: 10/07/2022 Prepared by: Becky Becerril Exercises - Sit to Stand - 3 x daily - 5 x weekly - 10-20 reps - 5-10 sec hold - Forward Step Over with Counter Support - 3 x daily - 5 x weekly - 10-20 reps - seatd july with opposite arm flex - 2 x daily - 5 x weekly - 10-20 reps - 5-10 sec hold Objective Other/Pertinent Objective interpretor Samy and granddaughter Kiki shoulder elevation to 80 then pain and drops UE. able to amb 150' with FWW without LOB though does demo foot drag consistently despite instruction (able to correct ~ 2-3 steps then reverts). able to step over nilton 5 x but is fatigued after several sets each LE sit/ stand either presses B LE into plinth/chair or uses UE. Patient Instructed in Risks/Benefits Yes Therapeutic Exercise Therapeutic Exercise Minutes (minutes) 40 Therapeutic Exercise: To Restore instruct demo perform and Functional Status handout issued: Access Code: [email or web address] URL: [email or web address] Date: 10/07/2022 Prepared by: Becky Becerril Exercises - Sit to Stand - 3 x daily - 5 x weekly - 10-20 reps - 5-10 sec hold - Forward Step Over with Counter Support - 3 x daily - 5 x weekly - 10-20 reps - seatd july with opposite arm flex - 2 x daily - 5 x weekly - 10-20 reps - 5-10 sec hold -also IN CLINIC - bridge x 10, bridge with straight arm shoulder flex to 90 x 10 - 1# ankle weight standing hip abduction x 10 each side, repeat with extension each side blocked practice. - supine B shoulder flex AROM x 10 Treatment Minutes Timed Code Treatment Minutes 40 Total Treatment Time 40 Billing Units Therapeutic Exercise Units 3 Assessment/Impression Assessment/Impression patient continues to be appropriate for skilled physical therapy. language barrier requiring complete translation does slow process of being able to communicate and correct technique of exercises, in addition to patient does require redirection several times in session, but is very willing to participate and is very very pleasant. Able to advance ex this date to more standing and working on foot clearance . She does have difficulty being easily distracted by her own conversation and tries to hurry through the ex rather than executing as well as she is able. Am hopeful that with consistent repetition and strenghthening she will be safer with gait and stairs ( has 14ish stairs to get to her bedroom from main floor) reducing caregiver load and I. She does demo improved tolerance for activity this date. Plan of Care Physical Therapy Goals 1) Pt demo I HEP and self care/home mgmt techniques for improved pain management and performance of independent ADLs including transfers and grooming. 2) Pt instructed in home safety techniques including removal of scatter rugs, use of night light and poss commode, and adaptive equip as appropriate. LTG meet 6-12 weeks 1) Pt demo ability to lift LE independently without hand assist when fatigued for entrance to vehicle, entrance/ exit from tub for grooming without substitution or fear of falling. 2) Pt demo gait pattern without antalgia, with equal stride lengths and demo appropriate hip, knee, and ankle motions. 3) Pt demo appropriate balance responses to decrease risk of falls with internal and external perturbations. 4) Pt demo ability to ascend/ descend steps without pain or failure to control eccentric motion for access to home laundry and shower using most appropraite or no gait aid and appropriate pattern for phase of healing. 5) Pt will demo 500' ambulation without limp and with least restrictive (or no) gait aid, best mechanics and balance to decrease risk of fall with community ambulation for things such as grocery shopping, participation in fitness activities. Daily Plan of Care Continue per POC Daily Plan of Care Comments if patient not approved for home care will continue to see in outpatient PT 1-2x/ week balance, gait, strength, functional activities, STAIRS Recertification Information Recertification Start Date 10/01/22 Recertification Due Date 11/01/22 Reasons to Continue Skilled Therapy improving strength, limited sessions thus far due to scheduling, insurance and interpreter translator availability. shoulder continues to be painful and is also side affected by stroke and fall within past few months landed on L side. Rehabilitation Potential good - supportive family lives with, but language barrier in sessions as well as impulsivity and poss decreased insight to deficits, L side hemiparesis Continued Plan of Care and Interventions TE, neuro, gait, MT prn, TA, self care, poss US to shoulder Provider Signature Shows Agreement With POC & Medical Necessity Physician Comment/Change Comment or Changes
== END 2023-01-10 09:41 | disposition home or self-care (01) ==
PROVIDERS: PCP Family Medicine; Visit Provider Family Medicine
DX: I63.9 Cerebral infarction, unspecified (principal); R53.1 Weakness; R26.89 Other abnormalities of gait and mobility; M25.512 Pain in left shoulder; Z51.89 Encounter for other specified aftercare
CPT/HCPCS: 97110; 97112; 97116; 97140; 97161; 97162; 97165; 97530; 97535; X5282

== ENCOUNTER 2023-02-03 10:54 | Outpatient (CLI) | payer MEDICARE, SELFPAY | END 2023-02-03 10:55 | disposition home or self-care (01) | PROVIDERS: PCP Family Medicine; Visit Provider Family Medicine | DX: D64.9 Anemia, unspecified (principal); I10 Essential (primary) hypertension; E78.5 Hyperlipidemia, unspecified; E11.9 Type 2 diabetes mellitus without complications | CPT/HCPCS: 80053; 80061; 80076 ==

== ENCOUNTER 2023-04-30 16:55 | Emergency (ER) | payer MEDICARE, SELFPAY ==
[2023-04-30] VITALS (24 sets, daily range): BP systolic 144–160; BP diastolic 65–80; PULSE 66–84; RESP 18; TEMP 36.6; O2SAT 96–99; BMI 20.5
--- NOTE | 2023-04-30 17:17 | ED.NAVMDI ---
HPI - Nausea/Vomiting/Diarrhea General Time Seen by Provider: 17:17 Date Seen: 04/30/23 Chief complaint: Nausea/Vomiting Stated complaint: GI upset-vomit etc. Fatigue, chest pain Time Seen by Provider: 04/30/23 16:56 Source: patient, RN notes reviewed and surgical corsetier Mode of arrival: ambulatory Limitations: no limitations History of Present Illness HPI Narrative: Patient is an 82-year-old female brought in by her son from home where she resides. She is seen with the assistance of the [place] surgical corsetier. She is complaining her head feeling heavy, her legs feeling weak, unable to walk, ongoing abdominal pain/epigastric pain, chest pain. She had soup yesterday and then started to have vomiting and diarrhea after that. She is not noted a fever. She has had a history of kidney stones with kidney stone extraction twice, hemorrhoid surgery. She states her legs feel numb, all of these symptoms of weakness and not able to walk started after she started having nausea vomiting. She states she is just too weak to walk. She has not been able to eat since last night, can only drink water. She tried some brett water and threw it up. She is also complaining of a cough when asked about cough. She states it did have some colored sputum now just more clear production. When asked how long she has had the cough, she states it has been there a long time. Patient is known to have diabetes, hyperlipidemia and hypertension, see a reported history of CVA but details not known in her record. Related Data Home Medications Medication Instructions Recorded Confirmed carboxymethylcellulose sodium 0.5 1 drp ophthalmic (eye) BID 01/10/23 05/01/23 % eye drops in a dropperette (Lubricating Plus) amoxicillin 500 mg tablet 500 mg PO BID 05/01/23 05/01/23 hydrocodone 5 mg-acetaminophen 325 1 tab PO Q4-6H PRN 05/01/23 05/01/23 mg tablet Previous Rx's Medication Instructions Recorded aspirin 81 mg chewable tablet 81 mg PO DAILY #100 tabs 06/16/22 (Children's Aspirin) docusate sodium 100 mg capsule 100 mg PO QDAY #90 caps 09/30/22 (Colace) blood sugar diagnostic (Blood #50 ea 11/08/22 Glucose Test strips) blood-glucose meter (Blood Glucose #1 ea 11/08/22 Monitoring kit) lancets 30 gauge (Ultra Thin #200 ea 11/08/22 Lancets) acetaminophen 325 mg tablet 650 mg (2 x 325 mg) PO Q6H PRN 02/03/23 pain #100 tabs amlodipine 10 mg tablet 10 mg PO QDAY #90 tabs 02/03/23 metformin 500 mg tablet,extended 500 mg PO QDAY #90 tabs 02/03/23 release 24 hr rosuvastatin 20 mg tablet 20 mg PO DAILY #90 tabs 04/14/23 ondansetron 4 mg disintegrating 4 mg PO Q8H PRN nausea and 04/30/23 tablet vomiting #20 tabs diclofenac sodium 1 % topical gel 4 g topical QID PRN knee pain #100 05/01/23 (Arthritis Pain (diclofenac)) grams sennosides 8.6 mg-docusate sodium 1 tab-cap PO QHS #30 tabs 05/01/23 50 mg tablet (Senexon-S) Allergies Allergy/AdvReac Type Severity Reaction Status Date / Time No Known Drug Allergies Allergy Verified 05/01/23 13:18 Review of Systems Status of ROS: Reports: 10 or more systems reviewed and unremarkable except as noted in History and below [facility] Medical History Constipation ?K59.00 - Constipation, unspecified (ICD-10) Diabetes mellitus ?E11.9 - Type 2 diabetes mellitus without complications (ICD-10) Hyperlipidemia ?E78.5 - Hyperlipidemia, unspecified (ICD-10) Hypertension ?I10 - Essential (primary) hypertension (ICD-10) Surgical History No significant past surgical history Social History Narrative: She lives with her son in [place] most the time but is here visiting her son in [place]. Code status is DNI. She does not smoke. She does not drink alcohol. Smoking Status: Never smoker Do you use any of these nicotine containing products: None How often do you have a drink containing alcohol: never AUDIT-C Alcohol total score: 0 Non-prescribed substance use: denies use Caffeine: No (coffee rarely) service: No Exam Const: Vital Signs, click to edit/add: Vital Signs - 24 hr 04/30/23 17:04 04/30/23 17:14 04/30/23 17:16 Temperature 97.8 F Pulse Rate 76 76 Pulse Rate [Pulse Oximeter] 79 Respiratory Rate 18 Blood Pressure 144/80 H Blood Pressure [Le ft Upper Arm] 151/73 H Pulse Oximetry 98 98 97 Oxygen Delivery Me thod Room Air 04/30/23 17:17 04/30/23 17:30 04/30/23 17:54 Temperature Pulse Rate 73 77 77 Pulse Rate [Pulse Oximeter] Respiratory Rate Blood Pressure Blood Pressure [Le ft Upper Arm] Pulse Oximetry 98 98 97 Oxygen Delivery Me thod 04/30/23 17:56 04/30/23 18:00 04/30/23 18:05 Temperature Pulse Rate 79 70 Pulse Rate [Pulse Oximeter] Respiratory Rate Blood Pressure Blood Pressure [Le ft Upper Arm] Pulse Oximetry 96 96 97 Oxygen Delivery Me thod 04/30/23 18:15 04/30/23 18:30 04/30/23 18:35 Temperature Pulse Rate 79 66 75 Pulse Rate [Pulse Oximeter] Respiratory Rate Blood Pressure Blood Pressure [Le ft Upper Arm] Pulse Oximetry 98 98 99 Oxygen Delivery Me thod 04/30/23 18:45 04/30/23 18:58 04/30/23 19:00 Temperature Pulse Rate 78 84 83 Pulse Rate [Pulse Oximeter] Respiratory Rate Blood Pressure 158/78 H Blood Pressure [Le ft Upper Arm] Pulse Oximetry 97 98 99 Oxygen Delivery Me thod 04/30/23 19:02 04/30/23 19:15 04/30/23 19:30 Temperature Pulse Rate 75 75 73 Pulse Rate [Pulse Oximeter] Respiratory Rate Blood Pressure 160/67 H Blood Pressure [Le ft Upper Arm] Pulse Oximetry 98 97 99 Oxygen Delivery Me thod 04/30/23 19:32 04/30/23 19:33 04/30/23 19:45 Temperature Pulse Rate 84 83 84 Pulse Rate [Pulse Oximeter] Respiratory Rate Blood Pressure 156/74 H Blood Pressure [Le ft Upper Arm] Pulse Oximetry 99 99 97 Oxygen Delivery Me thod 04/30/23 20:00 04/30/23 20:02 04/30/23 20:15 Temperature Pulse Rate 80 77 77 Pulse Rate [Pulse Oximeter] Respiratory Rate Blood Pressure 146/65 H Blood Pressure [Le ft Upper Arm] Pulse Oximetry 98 97 97 Oxygen Delivery Me thod Patient is a talkative and pleasant 82-year-old female. Sclera clear, extraocular muscles intact, pupils equal round reactive. Dentition in poor repair but overall mucosa is not dry, lips look normal. Neck is supple, no cervical adenopathy, no thyromegaly masses or nodules. Lungs are clear, good air entry, no wheezing or crackles. CV regular rate and rhythm, no murmur, normal S1 and S2. Abdomen is soft, normal bowel sounds, no organomegaly, abdomen is not tender or distended. She has no lower extremity edema, follows commands with movement, seems to have normal light touch sensation. No rashes noted. Documenting provider has reviewed patient's vital signs: yes Course Course ED Course: This certainly could be a gastroenteritis, colitis, possible other intra-abdominal pathology. Will be getting an EKG, have her on cardiac monitoring, pulse oximetry. She will get full complement of labs including a troponin. We will start with a portable chest x-ray, may need further imaging, particularly abdomen based on laboratory results. Will initiate a L of IV fluids, 4 mg IV Zofran. Pancreatitis, gallbladder pathology, cardiac pathology are all possible here. Reevaluation(s) Time of Reevaluation #1: 19:30 Reevaluation #1: While we were awaiting the [place] surgical corsetier, her son let me know that she forgot to tell me that her right knee has been painful. She points to the medial joint space. There is no trauma. She did have a stroke, affecting her left side, they wonder if her favoring this left side in compensating on the right has cause some increased pain in the knee. Exam of the knee shows no effusion, maybe a little bit more globular type appearance to the joint but no effusion, no erythema. Reviewed with them that we will obtain an x-ray of the knee. The surgical corsetier was eventually on, reviewed normal chest x-ray, normal labs. She would like some Zofran sent to the pharmacy. She is feeling much better after the fluids. Did review with patient that we had not checked for COVID, she would like to be checked for this. Will do the triple viral swab as GI symptomatology could come from influenza B as well. I do not think she needs to remain here for this. Prescription could be sent to her pharmacy for Paxil of id or Tamiflu if she is positive for either of these, her symptoms did just start last night. Time of Reevaluation #2: 20:32 Reevaluation #2: Have reviewed that her knee shows osteoarthritis, discussed Tylenol is initial line of treatment. Follow-up with primary care provider or Orthopedics if need be pain management is not sufficient. We will contact them with the COVID and pending viral swab results. Her GFR is 30.2, she does have active nausea vomiting diarrhea, do not think that Paxil of it is appropriate for her given her symptomatology coupled with her low GFR. If her COVID does come back positive, can be offered remdesivir. Her renal dosing of Tamiflu would be 30 mg twice a day for 5 days if she were to be positive for influenza. Vital Signs Vital signs: Initial Vital Signs Temperature 97.8 F 04/30/23 17:04 Temperature Source Temporal Artery Scan 04/30/23 17:04 Pulse Rate 79 04/30/23 17:04 Respiratory Rate 18 04/30/23 17:04 Blood Pressure 151/73 H 04/30/23 17:04 Blood Pressure Mean 99 04/30/23 17:04 Blood Pressure Position Supine 04/30/23 17:04 Pulse Oximetry 98 04/30/23 17:04 Oxygen Delivery Method Room Air 04/30/23 17:04 Vital Signs Temperature 97.8 F 04/30/23 17:04 Pulse Rate 79 04/30/23 17:04 Respiratory Rate 18 04/30/23 17:04 Blood Pressure 151/73 H 04/30/23 17:04 Pulse Oximetry 98 04/30/23 17:04 Oxygen Delivery Method Room Air 04/30/23 17:04 Temperature 97.8 F 04/30/23 17:04 Pulse Rate 77 04/30/23 20:15 Respiratory Rate 18 04/30/23 17:04 Blood Pressure 146/65 H 04/30/23 20:02 Pulse Oximetry 97 04/30/23 20:15 Oxygen Delivery Method Room Air 04/30/23 17:04 Medications Administered Medications: Discontinued Medications Generic Name Dose Route Start Last Admin Trade Name Freq PRN Reason Stop Dose Admin Sodium Chloride 1,000 mls @ 500 mls/hr 04/30/23 17:35 04/30/23 20:26 0.9 % Sodium Chloride 1000 Ml IV 04/30/23 19:34 Infused .Q2H OPAL Infusion Ondansetron HCl 4 mg 04/30/23 17:34 04/30/23 17:55 Ondansetron 2 Mg/Ml Inj IVP 04/30/23 17:35 4 mg ONCE ONE Administration MDM - Nausea/Vomiting/Diarrhea Lab Data Attestation: I reviewed the patient's lab results. Labs: Lab Results 04/30/23 04/30/23 04/30/23 Range/Units 17:32 17:38 18:55 WBC 6.00 (4.50-11.00) K/uL RBC 4.20 (4.00-5.20) m/uL Hgb 11.5 L (12.0-16.0) gm/dL Hct 36.2 (33.0-51.0) % MCV 86 (80-100) fL MCH 27 (26-34) pg MCHC 32 (32-36) gm/dL RDW Coeff of Cristofer 12.9 (11.5-15.5) % Plt Count 362 (140-440) K/uL Neut % (Auto) 74.0 H (42.0-72.0) % Lymph % (Auto) 15.3 L (20-44) % [place] % (Auto) 8.3 (0.0-11.0) % Eos % (Auto) 1.7 (0.0-7.0) % Baso % (Auto) 0.5 (0.0-3.0) % Neut # (Auto) 4.40 (1.7-7.0) K/uL Lymph # (Auto) 0.90 (0.90-2.90) K/uL [place] # (Auto) 0.50 (0.00-0.90) K/UL Eos # (Auto) 0.10 (0.00-0.50) K/uL Baso # (Auto) 0.03 (0.00-0.30) K/uL Abs Immat Gran (auto) 0.01 (0.00-0.30) K/uL Imm/Tot Granulo (auto) 0.2 % Sodium 136 (135-149) mmol/L Potassium 3.9 (3.6-5.1) mmol/L Chloride 102 (96-114) mmol/L Carbon Dioxide 21 (20-32) mmol/L Anion Gap 13 (7-15) mEq/L BUN 9 (7-30) mg/dL Creatinine 0.5 (0.5-1.5) mg/dL Estimated Creat Clear 30.62 Estimated GFR 93 ml/min Glucose 142 H (60-115) mg/dL Lactate 1.4 (0.5-1.9) mmol/L Calcium 9.4 (8.4-10.6) mg/dL Total Bilirubin 0.3 (0.1-1.5) mg/dL AST 40 H (12-35) U/L ALT 27 (4-35) U/L Alkaline Phosphatase 66 (40-150) U/L C-Reactive Protein 1.2 H (0.5-1.0) mg/dL NT-Pro-B Natriuret Pep 268 pg/mL Total Protein 7.7 (6.0-8.3) g/dL Albumin 4.6 (3.3-5.0) g/dL Lipase 55 (23-300) U/L Urine Color Yellow (Yellow) Urine Appearance Clear (Clear) Urine pH 7.0 (5.0-8.5) Ur Specific [place] 1.010 (1.000-1.030) Urine Protein Negative (Negative) Urine Glucose (UA) Negative (Negative) Urine Ketones Negative (Negative) Urine Blood Negative (Negative) Urine Nitrite Negative (Negative) Urine Bilirubin Negative (Negative) Urine Urobilinogen 0.2 (0.2-1.0) Ur Leukocyte Esterase Negative (Negative) Urine RBC 0-2 (0-2) Urine WBC 0-2 (0-5) Ur Squamous Epith Cells None (None-Few) Urine Bacteria None (None) SARS-CoV-2 (PCR) (Negative) Influenza Type A (PCR) (Negative) Influenza Type B (PCR) (Negative) RSV (PCR) (Negative) POC Troponin I 0.01 (0.01-0.04) ng/ml 04/30/23 Range/Units 20:00 WBC (4.50-11.00) K/uL RBC (4.00-5.20) m/uL Hgb (12.0-16.0) gm/dL Hct (33.0-51.0) % MCV (80-100) fL MCH (26-34) pg MCHC (32-36) gm/dL RDW Coeff of Cristofer (11.5-15.5) % Plt Count (140-440) K/uL Neut % (Auto) (42.0-72.0) % Lymph % (Auto) (20-44) % [place] % (Auto) (0.0-11.0) % Eos % (Auto) (0.0-7.0) % Baso % (Auto) (0.0-3.0) % Neut # (Auto) (1.7-7.0) K/uL Lymph # (Auto) (0.90-2.90) K/uL [place] # (Auto) (0.00-0.90) K/UL Eos # (Auto) (0.00-0.50) K/uL Baso # (Auto) (0.00-0.30) K/uL Abs Immat Gran (auto) (0.00-0.30) K/uL Imm/Tot Granulo (auto) % Sodium (135-149) mmol/L Potassium (3.6-5.1) mmol/L Chloride (96-114) mmol/L Carbon Dioxide (20-32) mmol/L Anion Gap (7-15) mEq/L BUN (7-30) mg/dL Creatinine (0.5-1.5) mg/dL Estimated Creat Clear Estimated GFR ml/min Glucose (60-115) mg/dL Lactate (0.5-1.9) mmol/L Calcium (8.4-10.6) mg/dL Total Bilirubin (0.1-1.5) mg/dL AST (12-35) U/L ALT (4-35) U/L Alkaline Phosphatase (40-150) U/L C-Reactive Protein (0.5-1.0) mg/dL NT-Pro-B Natriuret Pep pg/mL Total Protein (6.0-8.3) g/dL Albumin (3.3-5.0) g/dL Lipase (23-300) U/L Urine Color (Yellow) Urine Appearance (Clear) Urine pH (5.0-8.5) Ur Specific [place] (1.000-1.030) Urine Protein (Negative) Urine Glucose (UA) (Negative) Urine Ketones (Negative) Urine Blood (Negative) Urine Nitrite (Negative) Urine Bilirubin (Negative) Urine Urobilinogen (0.2-1.0) Ur Leukocyte Esterase (Negative) Urine RBC (0-2) Urine WBC (0-5) Ur Squamous Epith Cells (None-Few) Urine Bacteria (None) SARS-CoV-2 (PCR) Negative SARS-CoV-2 (Negative) Influenza Type A (PCR) Negative PCR FLU A (Negative) Influenza Type B (PCR) Negative PCR FLU B (Negative) RSV (PCR) Negative PCR RSV (Negative) POC Troponin I (0.01-0.04) ng/ml Imaging Data Chest x-ray: Attestation: I have reviewed the pertinent imaging results. Radiologist's impression: Patient: [facility] Facility:?[facility] Patient ID:?[id number] Site Patient ID:?[id number]. Site :?[id number] Study:?XRay Chest Portable-04/30/2023 6:33:51 PM Ordering Physician:?Ramy Rabago Final Report: HISTORY: Chest discomfort. TECHNIQUE: One view of the chest. COMPARISON: No prior. FINDINGS: Cardiac size is within normal limits accounting for portable technique. There is no pulmonary vascular congestion. No acute lung infiltrate or pulmonary edema. No pneumothorax or pleural effusion. Potential bone island within the left proximal humerus. Surgical clips right upper quadrant may relate to prior cholecystectomy. IMPRESSION: No acute cardiopulmonary disease. Dictated by Deni Johnson MD @ 04/30/2023 6:42:25 PM Dictated by: Deni Johnson MD @ 04/30/2023 18:42:30 XR right knee: Attestation: I have reviewed the pertinent imaging results. My impression: I believe there to be joint space narrowing, osteoarthritis that appears more mild my preliminary review. Await Radiology over-read. Radiologist's impression: Patient: [facility] Facility:?[facility] Patient ID:?[id number] Site Patient ID:?[id number]. Site :?[id number] Study:?XRay Knee Right -04/30/2023 8:00:41 PM Ordering Physician:Dane Rabago Final Report: INDICATION: Right knee pain. TECHNIQUE: Right knee radiographs, 2 views. COMPARISON: None. FINDINGS: No acute fracture dislocation. There is osteoarthritic degeneration with subchondral sclerosis, joint space narrowing and marginal osteophytosis. There is questionable patella baja, however the knee joint is suboptimally flexed on the lateral projection. No significant soft tissue edema or radiopaque foreign bodies. IMPRESSION: No acute fracture or dislocation. Osteoarthritic degenerative changes, as detailed above. Dictated by Samy Maier MD @ 04/30/2023 8:24:27 PM (Electronic Signature) ECG Data Attestation: I personally reviewed and interpreted this ECG as follows: (Normal sinus rhythm, 74 beats per minute. No concerning ischemic change. QT corrected 430 milliseconds.) ECG interpretation date: 04/30/23 ECG interpretation time: 18:05 Prior ECG tracings: available for review (No significant change when compared to EKG from 2021. ) Discharge Plan Discharge Clinical Impression: Gastroenteritis and colitis, viral, Osteoarthritis of right knee Patient Disposition: Home, Self-Care Condition: Stable Instructions: Osteoarthritis (ED), Gastroenteritis (ED), Nutrition Tips for Relief of Diarrhea (ED) Additional Instructions: Can use Zofran as prescribed for any further nausea or vomiting, this will help you drink fluids. Recommend small frequent sips of clear liquids until you start to feel better. As your hunger returns, can increase her diet back to regular. If you are not improving over the next 2-3 days, feel you are worsening at any point, develops fever, uncontrolled vomiting or severe abdominal pain, do need to be re-evaluated. I believe your knee on the right does have some mild arthritis in the medial joint space. Tylenol is 1st line treatment for this, can follow bottle directions for dosing. Recommend follow-up in clinic to talk to her primary care provider if Tylenol is not sufficient. We will contact you with the pending COVID/influenza results. Activity Level: Activity as Tolerated Prescriptions: New ondansetron 4 mg tablet,disintegrating 4 mg PO Q8H PRN (Reason: nausea and vomiting) Qty: 20 0RF No Action aspirin [Children's Aspirin] 81 mg tablet,chewable 81 mg PO DAILY Qty: 100 3RF docusate sodium [Colace] 100 mg capsule 100 mg PO QDAY Qty: 90 3RF amlodipine 10 mg tablet 10 mg PO QDAY Qty: 90 3RF metformin 500 mg tablet extended release 24 hr 500 mg PO QDAY Qty: 90 1RF acetaminophen 325 mg tablet 650 mg PO Q6H PRN (Reason: pain) Qty: 100 4RF amoxicillin 500 mg tablet 500 mg PO BID hydrocodone-acetaminophen 5-325 mg tablet 1 tab PO Q4-6H PRN sennosides-docusate sodium [Senexon-S] 8.6-50 mg tablet 1 tab-cap PO QHS Qty: 30 5RF diclofenac sodium [Arthritis Pain (diclofenac)] 1 % gel 4 g topical QID PRN (Reason: knee pain) Qty: 100 2RF Rx Instructions: apply to single knee, ankle, foot; for foot includes sole/toes/top of foot (DME) blood-glucose meter [Blood Glucose Monitoring] Kit See Rx Instructions .Route Qty: 1 0RF Rx Instructions: As directed (DME) Blood Glucose Test Strip See Rx Instructions .Route Qty: 50 6RF Rx Instructions: bid (DME) lancets [Ultra Thin Lancets] 30 gauge misc See Rx Instructions .Route Qty: 200 3RF Rx Instructions: As directed carboxymethylcellulose sodium [Lubricating Plus] 0.5 % dropperette 1 drp ophthalmic (eye) BID Rx Instructions: 1 drop in each eye 2-3 times/day rosuvastatin 20 mg tablet 20 mg PO DAILY Qty: 90 3RF Follow Up/Referrals: Bernard Ramirez MD [Primary Care Provider] - Stand Alone Forms: MyHealth Info Instructions Critical Care Time Critical Care Time Critical Care Time: No
--- NOTE | 2023-04-30 17:26 | CRLHL7_ITS ---
For Patients: As a result of the Cures Act, medical imaging exams and procedure reports are released immediately into your electronic medical record. You may view this report before your referring provider. If you have questions, please contact your health care provider. HISTORY: Chest discomfort. TECHNIQUE: One view of the chest. COMPARISON: No prior. FINDINGS: Cardiac size is within normal limits accounting for portable technique. There is no pulmonary vascular congestion. No acute lung infiltrate or pulmonary edema. No pneumothorax or pleural effusion. Potential bone island within the left proximal humerus. Surgical clips right upper quadrant may relate to prior cholecystectomy. IMPRESSION: No acute cardiopulmonary disease. Dictated by Deni Johnson MD @ 04/30/2023 6:42:25 PM Dictated by: Deni Johnson MD @ 04/30/2023 18:42:30 (Electronically Signed)
[2023-04-30 17:46] LABS: Lactate* 1.4 mmol/L (0.5-1.9)
[2023-04-30 17:50] LABS: Troponin, Point-of-Care* 0.01 ng/ml (0.01-0.04)
[2023-04-30 17:50] LABS: Basophils Absolute Auto 0.03 K/uL (0.00-0.30); Basophils Percent Auto 0.5 % (0.0-3.0); Eosinophils Percent Auto 1.7 % (0.0-7.0); Hematocrit 36.2 % (33.0-51.0); Hemoglobin* 11.5 gm/dL (12.0-16.0); Immature Granulocytes Abs Auto 0.01 K/uL (0.00-0.30); Immature Granulocytes Pct Auto 0.2 %; Lymphocytes Percent Auto 15.3 % (20-44); Mean Corpuscular HGB Conc 32 gm/dL (32-36); Mean Corpuscular Hemoglobin 27 pg (26-34); Mean Corpuscular Volume 86 fL (80-100); Monocytes Percent Auto 8.3 % (0.0-11.0); Platelet Count* 362 K/uL (140-440); RDW Coefficient of Variation % 12.9 % (11.5-15.5)
[2023-04-30] MEDS: 0.9 % SODIUM CHLORIDE 1000 ml 1,000 ML 500 ML IV (17:55)
[2023-04-30] MEDS: ONDANSETRON 2 MG/ML inj 4 MG IVP (17:55)
[2023-04-30 18:02] LABS: Slide Review Reflex No
[2023-04-30 18:06] LABS: Albumin* 4.6 g/dL (3.3-5.0); Chloride* 102 mmol/L (96-114); Sodium* 136 mmol/L (135-149)
[2023-04-30 18:07] LABS: Potassium* 3.9 mmol/L (3.6-5.1)
[2023-04-30 18:08] LABS: Lipase* 55 U/L (23-300)
[2023-04-30 18:09] LABS: Alkaline Phosphatase* 66 U/L (40-150); Anion Gap 13 mEq/L (7-15); Aspartate Amino Transferase* 40 U/L (12-35); Bilirubin Total* 0.3 mg/dL (0.1-1.5); Carbon Dioxide* 21 mmol/L (20-32); Creatinine* 0.5 mg/dL (0.5-1.5); Est. Creatinine Clearance* 30.62; Estimated Glomerular Filt Rate 93 ml/min; Total Protein* 7.7 g/dL (6.0-8.3)
[2023-04-30 18:10] LABS: Alanine Aminotransferase* 27 U/L (4-35); Blood Urea Nitrogen* 9 mg/dL (7-30); Calcium* 9.4 mg/dL (8.4-10.6); Glucose* 142 mg/dL (60-115)
[2023-04-30 18:12] LABS: C Reactive Protein* 1.2 mg/dL (0.5-1.0)
[2023-04-30 18:27] LABS: NT Pro B Type NatriureticPept* 268 pg/mL
[2023-04-30 19:25] LABS: Appearance Urine Clear (Clear); Bilirubin Urine Negative (Negative); Blood Urine Negative (Negative); Color Urine Yellow (Yellow); Glucose Urine Negative (Negative); Ketones Urine Negative (Negative); Leukocyte Esterase Urine Negative (Negative); Nitrite Urine Negative (Negative); Protein Urine Negative (Negative); Urobilinogen Urine 0.2 (0.2-1.0)
[2023-04-30 19:27] LABS: RBC Urine 0-2 (0-2); WBC Urine 0-2 (0-5)
--- NOTE | 2023-04-30 19:34 | CRLHL7_ITS ---
For Patients: As a result of the Cures Act, medical imaging exams and procedure reports are released immediately into your electronic medical record. You may view this report before your referring provider. If you have questions, please contact your health care provider. INDICATION: Right knee pain. TECHNIQUE: Right knee radiographs, 2 views. COMPARISON: None. FINDINGS: No acute fracture dislocation. There is osteoarthritic degeneration with subchondral sclerosis, joint space narrowing and marginal osteophytosis. There is questionable patella baja, however the knee joint is suboptimally flexed on the lateral projection. No significant soft tissue edema or radiopaque foreign bodies. IMPRESSION: No acute fracture or dislocation. Osteoarthritic degenerative changes, as detailed above. Dictated by Samy Maier MD @ 04/30/2023 8:24:27 PM (Electronically Signed)
[2023-04-30 20:51] LABS: PCR FLU A Negative PCR FLU A (Negative); PCR FLU B Negative PCR FLU B (Negative); PCR RSV Negative PCR RSV (Negative)
[2023-04-30 20:53] LABS: SARS PCR* Negative SARS-CoV-2 (Negative)
== END 2023-04-30 20:44 | disposition home or self-care (01) ==
PROVIDERS: Emergency Provider Family Medicine; PCP Family Medicine
DX: K52.9 Noninfective gastroenteritis and colitis, unspecified (principal); M17.11 Unilateral primary osteoarthritis, right knee
CPT/HCPCS: 36415; 71045; 73560; 80053; 81001; 83605; 83690; 83880; 84484; 85025; 86140; 87631; 93005; 94761; 95992; 96374; 99284; J2405; J7030

== ENCOUNTER 2023-10-06 15:45 | Outpatient (CLI) | payer MEDICARE, SELFPAY | END 2023-10-06 15:46 | disposition home or self-care (01) | PROVIDERS: PCP Family Medicine; Visit Provider Family Medicine | DX: I10 Essential (primary) hypertension (principal); E11.9 Type 2 diabetes mellitus without complications; E78.5 Hyperlipidemia, unspecified; D64.9 Anemia, unspecified; Z78.0 Asymptomatic menopausal state | CPT/HCPCS: 80053; 82043; 82570; 82607; 82728; 83540 ==

== ENCOUNTER 2023-10-25 13:33 | Emergency (ER) | payer MEDICARE, MEDICAID, SELFPAY ==
[2023-10-25 13:50] VITALS: BP 166/63; PULSE 85; RESP 18; TEMP 35.7; O2SAT 99
--- NOTE | 2023-10-25 13:59 | ED_ITS ---
HPI - General Adult General Chief complaint: Dizziness/Vertigo Stated complaint: vomiting, dizziness Time Seen by Provider: 10/25/23 13:43 History of Present Illness HPI narrative: earlier today was cleaning and fine until a crazy dizziness, nausea, vomitted a lot, chest hurt, chilling sensation in spine, vomitted , pooping at same time as vomitting. has been healthy does not know why this happened. granddaughter in room with pt. malaysian celery stripper on the stick used . hx of stroke a year ago that effected L side, does have L sided weakness since then 83-year-old woman presenting to the emergency department with concern of vomiting and it extensive dizziness. This may have started when she had bent forward in her cleaning efforts. Ended up having bowel movement at the same time. Underlying history of CVA about a year ago with some left-sided residual weakness. Granddaughter tried giving an oral Zofran but this was vomited up. No shortness of breath but her chest it hurt. No preceding fever. Only takes aspirin. Related Data Previous Rx's ?Medication ?Instructions ?Recorded blood sugar diagnostic (Blood #50 ea 11/08/22 Glucose Test strips) blood-glucose meter (Blood Glucose #1 ea 11/08/22 Monitoring kit) lancets 30 gauge (Ultra Thin #200 ea 11/08/22 Lancets) diclofenac sodium 1 % topical gel 4 g topical QID PRN knee pain #100 05/12/23 (Arthritis Pain (diclofenac)) grams aspirin 81 mg chewable tablet 81 mg PO DAILY #100 tabs 07/17/23 (Children's Aspirin) clobetasol 0.05 % topical cream 1 applic topical BID PRN rash #60 07/31/23 grams sennosides 8.6 mg-docusate sodium 1 tab-cap PO QHS PRN constipation 07/31/23 50 mg tablet (Senexon-S) #30 tabs multivitamin (Daily Multi-Vitamin 1 tab PO QDAY #90 tabs 08/18/23 tablet) acetaminophen 325 mg tablet 650 mg (2 x 325 mg) PO Q6H PRN 10/06/23 pain #100 tabs iron,carbonyl 65 mg-vitamin C 125 1 tab PO QDAY #90 tabs 10/06/23 mg tablet,delayed release (Vitron-C) metformin 500 mg tablet,extended 500 mg PO QDAY #90 tabs 10/06/23 release 24 hr omeprazole 20 mg capsule,delayed 20 mg PO DAILY #90 caps 10/06/23 release amlodipine 10 mg tablet 10 mg PO QDAY #90 tabs 10/12/23 rosuvastatin 20 mg tablet 20 mg PO DAILY #90 tabs 10/12/23 Allergies Allergy/AdvReac Type Severity Reaction Status Date / Time No Known Drug Allergies Allergy Verified 10/06/23 15:45 Review of Systems Status of ROS: Reports: 6 or more systems reviewed and unremarkable except as noted in History and below [facility] Medical History Constipation ?K59.00 - Constipation, unspecified (ICD-10) Diabetes mellitus ?E11.9 - Type 2 diabetes mellitus without complications (ICD-10) Hyperlipidemia ?E78.5 - Hyperlipidemia, unspecified (ICD-10) Hypertension ?I10 - Essential (primary) hypertension (ICD-10) Surgical History No significant past surgical history Social History Narrative: She lives with her son in [place] most the time but is here visiting her son in [place]. Code status is DNI. She does not smoke. She does not drink alcohol. Smoking Status: Never smoker Do you use any of these nicotine containing products: None How often do you have a drink containing alcohol: never AUDIT-C Alcohol total score: 0 Non-prescribed substance use: denies use Caffeine: No (coffee rarely) Little interest or pleasure in doing things: several days Feeling down, depressed, or hopeless: not at all service: No Exam Narrative: Exam Narrative: Does appear fatigued. Is generally pleasantly talkative. Head is atraumatic. There is no nystagmus. Pupils are equal and briskly reactive. Reproduction of dizziness as described somewhat with head movement. Lessens when still. TMs are clear. Facial swelling erythema. Cranial nerves 2-12 intact. Subtly weaker on her left side as described. Breathing easily. Lungs are clear. Heart is in a regular rate and rhythm. Abdomen is soft diffusely mildly uncomfortable. Extremities are well perfused without edema. No apparent loss of sensation. Oropharynx is sticky. Neck is supple without lymphadenopathy. Const: Vital Signs, click to edit/add: Vital Signs - 24 hr 10/25/23 13:50 10/25/23 14:00 10/25/23 14:48 Temperature 96.3 F L 96.3 F L Pulse Rate [Pulse Oximeter] 85 83 84 Respiratory Rate 18 18 18 Blood Pressure [Le ft Upper Arm] 166/63 H 146/69 H 146/69 H Pulse Oximetry 99 95 96 Oxygen Delivery Me thod Room Air Room Air Room Air 10/25/23 15:00 Temperature Pulse Rate [Pulse Oximeter] 87 Respiratory Rate 18 Blood Pressure [Le ft Upper Arm] 132/60 Pulse Oximetry 98 Oxygen Delivery Me thod Room Air Documenting provider has reviewed patient's vital signs: yes Course Vital Signs Vital signs: Initial Vital Signs Temperature 96.3 F L 10/25/23 13:50 Temperature Source Temporal Artery Scan 10/25/23 13:50 Pulse Rate 85 10/25/23 13:50 Respiratory Rate 18 10/25/23 13:50 Blood Pressure 166/63 H 10/25/23 13:50 Blood Pressure Mean 97 10/25/23 13:50 Blood Pressure Position Supine 10/25/23 13:50 Pulse Oximetry 99 10/25/23 13:50 Oxygen Delivery Method Room Air 10/25/23 13:50 Vital Signs Temperature 96.3 F L 10/25/23 13:50 Pulse Rate 85 10/25/23 13:50 Respiratory Rate 18 10/25/23 13:50 Blood Pressure 166/63 H 10/25/23 13:50 Pulse Oximetry 99 10/25/23 13:50 Oxygen Delivery Method Room Air 10/25/23 13:50 Temperature 96.3 F L 10/25/23 14:48 Pulse Rate 87 10/25/23 15:00 Respiratory Rate 18 10/25/23 15:00 Blood Pressure 132/60 10/25/23 15:00 Pulse Oximetry 98 10/25/23 15:00 Oxygen Delivery Method Room Air 10/25/23 15:00 Medications Administered Medications: Discontinued Medications Generic Name Dose Route Start Last Admin Trade Name Freq PRN Reason Stop Dose Admin Diazepam 3 mg 10/25/23 14:17 10/25/23 14:41 Diazepam 5 Mg/Ml Inj IV 10/25/23 14:18 3 mg ONCE ONE Administration Sodium Chloride 1,000 mls @ 1,000 mls/hr 10/25/23 14:17 10/25/23 16:10 0.9 % Sodium Chloride 1000 Ml IV 10/25/23 15:16 Infused .Q1H ONE Infusion Medical Decision Making MDM Narrative Medical decision making narrative: Concerning history of CVA. Unclear if some of this vomiting is related to the dizziness that she is describing or has a gastrointestinal illness. Bowel movement I suppose also could have been a stress response. Will evaluate for cardiovascular event and rehydrate. Pending improvement with treatments may need to do head imaging. I think this is a peripheral vertiginous problem. Will treat/test with IV fluids and diazepam low-dose. On reassessment is significantly improved. No events on monitor. White count is little bit elevated. This might be stress response or indicate gastrointestinal illness. Feels well enough to leave the emergency department. Tests well. See patient discharge plan for further discussion Medical Records Medical records reviewed: Yes I reviewed the patient's medical records Lab Data Lab results reviewed: Yes I reviewed the patient's lab results Labs: Lab Results 10/25/23 10/25/23 Range/Units 14:17 14:38 WBC 14.20 H (4.50-11.00) K/uL RBC 4.46 (4.00-5.20) m/uL Hgb 12.2 (12.0-16.0) gm/dL Hct 38.3 (33.0-51.0) % MCV 86 (80-100) fL MCH 27 (26-34) pg MCHC 32 (32-36) gm/dL RDW Coeff of Cristofer 13.6 (11.5-15.5) % Plt Count 354 (140-440) K/uL Neut % (Auto) 84.1 H (42.0-72.0) % Lymph % (Auto) 8.4 L (20-44) % [place]morton % (Auto) 5.2 (0.0-11.0) % Eos % (Auto) 1.9 (0.0-7.0) % Baso % (Auto) 0.3 (0.0-3.0) % Neut # (Auto) 11.90 H (1.7-7.0) K/uL Lymph # (Auto) 1.20 (0.90-2.90) K/uL [place]mort[place] # (Auto) 0.70 (0.00-0.90) K/UL Eos # (Auto) 0.30 (0.00-0.50) K/uL Baso # (Auto) 0.00 (0.00-0.30) K/uL Abs Immat Gran (auto) 0.00 (0.00-0.30) K/uL Imm/Tot Granulo (auto) 0.1 % Sodium 142 (135-149) mmol/L Potassium 4.5 (3.6-5.1) mmol/L Chloride 104 (96-114) mmol/L Carbon Dioxide 29 (20-32) mmol/L Anion Gap 9 (7-15) mEq/L BUN 16 (7-30) mg/dL Creatinine 0.6 (0.5-1.5) mg/dL Estimated GFR 88 ml/min Glucose 124 H (60-115) mg/dL Calcium 9.8 (8.4-10.6) mg/dL Magnesium 2.1 (1.5-2.6) mg/dL Troponin I < 0.01 L (0.01-0.04) ng/mL C-Reactive Protein < 0.5 L (0.5-1.0) mg/dL NT-Pro-B Natriuret Pep 247 pg/mL POC Troponin I 0.01 (0.01-0.04) ng/ml ECG Data Attestation: I personally reviewed and interpreted this ECG as follows: (Normal sinus rhythm with a rate of 90. Without ischemic changes) Discharge Plan Discharge Clinical Impression: Peripheral vertigo, Vomiting Patient Disposition: Home w/ Parent or Adult Condition: Improved Additional Instructions: I am happy you are feeling better. Consider taking a dose of your anti-nausea medicine when you get home; the ondansetron. I think you had some combination of irritation in your inner ear contributing to the dizziness and/or a ?stomach bug?. If you have recurrence of this dizziness particularly with new and focal weakness, uncontrolled headache, intractable vomiting, please return to the emergency department. T?i h?nh ph?c v? b?n ?ang c?m th?y t?t h?n. C?n nh?c d?ng m?t li?u john?c ch?ng bu?n n?n khi v? nh?; ondansetron. T?i ngh? b?n ?? b? k?ch th?ch k?t h?p ? tia haley, g?p ph?n g?y ra ch?ng m?t v?/ho?c ?b?nh d? d?y?. N?u b?n t?i ph?t t?nh tr?ng ch?ng m?t n?y, ??c bi?t l? k?m wale t?nh tr?ng y?u c? m?i vazquez?t hi?n, ?au ??u kh?ng ki?m so?t ???c, n?n m?a kh? ch?a, vui l?ng shmuel l?i ph?ng c?p c?u. Prescriptions: No Action Vitron-C 65 mg iron- 125 mg tablet,delayed release (DR/EC) 1 tab PO QDAY Qty: 90 1RF metformin 500 mg tablet extended release 24 hr 500 mg PO QDAY Qty: 90 1RF omeprazole 20 mg capsule,delayed release(DR/EC) 20 mg PO DAILY Qty: 90 0RF acetaminophen 325 mg tablet 650 mg PO Q6H PRN (Reason: pain) Qty: 100 4RF sennosides-docusate sodium [Senexon-S] 8.6-50 mg tablet 1 tab-cap PO QHS PRN (Reason: constipation) Qty: 30 2RF clobetasol 0.05 % cream 1 applic topical BID PRN (Reason: rash) Qty: 60 1RF (DME) blood-glucose meter [Blood Glucose Monitoring] Kit See Rx Instructions .Route Qty: 1 0RF Rx Instructions: As directed (DME) Blood Glucose Test Strip See Rx Instructions .Route Qty: 50 6RF Rx Instructions: bid (DME) lancets [Ultra Thin Lancets] 30 gauge misc See Rx Instructions .Route Qty: 200 3RF Rx Instructions: As directed diclofenac sodium [Arthritis Pain (diclofenac)] 1 % gel 4 g topical QID PRN (Reason: knee pain) Qty: 100 2RF Rx Instructions: apply to single knee, ankle, foot; for foot includes sole/toes/top of foot. aspirin [Children's Aspirin] 81 mg tablet,chewable 81 mg PO DAILY Qty: 100 0RF multivitamin [Daily Multi-Vitamin] Tablet 1 tab PO QDAY Qty: 90 5RF rosuvastatin 20 mg tablet 20 mg PO DAILY Qty: 90 3RF amlodipine 10 mg tablet 10 mg PO QDAY Qty: 90 3RF Follow Up/Referrals: Bernard Ramirez MD [Primary Care Provider] - Stand Alone Forms: [employer] Info Instructions
[2023-10-25 14:00] VITALS: BP 146/69; PULSE 83; RESP 18; O2SAT 95
[2023-10-25] MEDS: 0.9 % SODIUM CHLORIDE 1000 ml 1,000 ML IV (14:40)
[2023-10-25] MEDS: diazePAM 5 MG/ML inj 3 MG IV (14:41)
[2023-10-25 14:47] LABS: Basophils Percent Auto 0.3 % (0.0-3.0); Eosinophils Percent Auto 1.9 % (0.0-7.0); Hematocrit 38.3 % (33.0-51.0); Hemoglobin* 12.2 gm/dL (12.0-16.0); Immature Granulocytes Pct Auto 0.1 %; Lymphocytes Percent Auto 8.4 % (20-44); Mean Corpuscular HGB Conc 32 gm/dL (32-36); Mean Corpuscular Hemoglobin 27 pg (26-34); Mean Corpuscular Volume 86 fL (80-100); Monocytes Percent Auto 5.2 % (0.0-11.0); Neutrophils Percent Auto 84.1 % (42.0-72.0); Platelet Count* 354 K/uL (140-440); RDW Coefficient of Variation % 13.6 % (11.5-15.5); Red Blood Count 4.46 m/uL (4.00-5.20)
[2023-10-25 14:48] VITALS: BP 146/69; PULSE 84; RESP 18; TEMP 35.7; O2SAT 96
[2023-10-25 14:51] LABS: Troponin, Point-of-Care* 0.01 ng/ml (0.01-0.04)
[2023-10-25 14:59] LABS: Chloride* 104 mmol/L (96-114); Sodium* 142 mmol/L (135-149)
[2023-10-25 15:00] VITALS: BP 132/60; PULSE 87; RESP 18; O2SAT 98
[2023-10-25 15:00] LABS: Potassium* 4.5 mmol/L (3.6-5.1)
[2023-10-25 15:02] LABS: Creatinine* 0.6 mg/dL (0.5-1.5); Estimated Glomerular Filt Rate 88 ml/min
[2023-10-25 15:03] LABS: Anion Gap 9 mEq/L (7-15); Blood Urea Nitrogen* 16 mg/dL (7-30); Calcium* 9.8 mg/dL (8.4-10.6); Carbon Dioxide* 29 mmol/L (20-32); Glucose* 124 mg/dL (60-115); Magnesium* 2.1 mg/dL (1.5-2.6)
[2023-10-25 15:06] LABS: Slide Review Reflex No
[2023-10-25 15:20] LABS: C Reactive Protein* < 0.5 mg/dL (0.5-1.0); NT Pro B Type NatriureticPept* 247 pg/mL; Troponin I* < 0.01 ng/mL (0.01-0.04)
== END 2023-10-25 16:37 | disposition home or self-care (01) ==
PROVIDERS: Emergency Provider Family Medicine; PCP Family Medicine
DX: R42 Dizziness and giddiness (principal); R11.10 Vomiting, unspecified
CPT/HCPCS: 36415; 80048; 83735; 83880; 84484; 85025; 86140; 93005; 96374; 99284; J3360; J7030